=== PATIENT | female | born 1965 | race Caucasian/White ===

== ENCOUNTER 2019-12-14 08:42 | Outpatient (CLI) | payer OTHER, SELFPAY ==
[2019-12-14 09:13] LABS: Basophils Percent Auto 0.8 % (0.2-1.2); Eosinophils Absolute Auto 0.1 K/mm3 (0-0.3); Eosinophils Percent Auto 2.2 % (0-4.4); Hematocrit 40.7 % (37.0-47.0); Hemoglobin 13.9 g/dL (12.0-15.0); Immature Granulocyte Absolute 0.02 K/mm3 (0.00-0.031); Immature Granulocyte Percent A 0.4 % (0-0.5); Lymphocytes Absolute Auto 1.86 K/mm3 (0.9-3.2); Mean Corpuscular HGB Conc 34.2 g/dl (32-36); Mean Corpuscular Hemoglobin 30.5 pg (26-34); Mean Corpuscular Volume 89.3 fl (80-100); Mean Platelet Volume 10.4 fl (7.4-10.4); Monocytes Absolute Auto 0.4 K/mm3 (0.1-0.6); Monocytes Percent Auto 7.6 % (2.6-8.5); Neutrophils Absolute Auto 2.6 K/mm3 (1.3-6.7); Platelet Count Result 184 k/mm3 (150-375); Red Blood Count 4.56 M/mm3 (4.2-5.4); Red Cell Distribution Width 13.4 % (11.5-14.5)
[2019-12-14 09:17] LABS: Add Urine Microscopic? YES; Appearance Urine Clear (Clear); Bacteria Urine 4+ /hpf; Bilirubin Urine Negative (Negative); Blood Urine 1+ (Negative); Color Urine Yellow (Yellow); Glucose Urine UA 3+ mg/dL (Negative); Ketones Urine Negative (Negative); Leukocyte Esterase Ur 1+ LEU/UL (Negative); Mucus Urine Rare /lpf; Nitrate Urine Positive (Negative); Protein Urine Negative (Negative); Specific Grav Ur 1.018 (1.001-1.035); Squamous Epithelial Cell Urine Occasional /hpf (Few); Urobilinogen Urine Negative mg/dL (<2.0); WBC Urine 31-50 /hpf
[2019-12-14 09:30] LABS: Alanine Aminotransferase 32 U/L (4-35); Albumin Level 4.4 g/dL (3.5-5.1); Alkaline Phosphatase 106 U/L (38-126); Anion Gap 8 mmol/L (8-16); Aspartate Amino Transferase 33 U/L (14-36); Bilirubin,Total 1.3 mg/dL (0.2-1.3); Blood Urea Nitrogen 15 mg/dL (7-17); Carbon Dioxide 27 mmol/L (22-30); Chloride 99 mmol/L (98-107); Cholesterol 271 mg/dL (0-200); Estimated Glomerular Filt Rate > 60; Glucose 233 mg/dL (65-105); HDL Direct 33 mg/dL; Potassium 4.6 mmol/L (3.4-5.0); Sodium 134 mmol/L (137-145)
[2019-12-14 09:39] LABS: LDL Cholesterol Direct 114 mg/dL
[2019-12-14 09:46] LABS: Triglycerides 697 mg/dL (<150)
[2019-12-14 10:06] LABS: Creatinine Urine 104.6 mg/dL
[2019-12-14 10:09] LABS: Hemoglobin A1C 8.9 % (<5.7)
[2019-12-14 10:11] LABS: MALB Creatinine Ratio 29.2 mg/g (0-30); Microalbumin Urine Random 30.5 mg/L (0-16.7)
== END 2019-12-14 08:43 | disposition home or self-care (01) ==
LOC: ANHLAB 08:47
PROVIDERS: PCP Physician Assistant; Visit Provider Physician Assistant
DX: E11.65 Type 2 diabetes mellitus with hyperglycemia (principal); E78.2 Mixed hyperlipidemia; Z79.899 Other long term (current) drug therapy
CPT/HCPCS: 36415; 80048; 80061; 80076; 81001; 82043; 83036; 84439; 84443; 85025; 87086; 87088

== ENCOUNTER 2020-01-27 13:50 | Outpatient (CLI) | payer OTHER, SELFPAY ==
[2020-01-27 14:26] LABS: Add Urine Microscopic? YES; Appearance Urine Clear (Clear); Bacteria Urine Trace /hpf; Bilirubin Urine Negative (Negative); Blood Urine Negative (Negative); Color Urine Straw (Yellow); Glucose Urine UA 3+ mg/dL (Negative); Ketones Urine Negative (Negative); Leukocyte Esterase Ur Negative LEU/UL (NEGATIVE); Nitrate Urine Negative (Negative); Protein Urine Negative (Negative); RBC Urine 0-2 /hpf (0-2); Specific Grav Ur 1.023 (1.001-1.035); Squamous Epithelial Cell Urine Rare /hpf (Few); Urobilinogen Urine Negative mg/dL (<2.0)
== END 2020-01-27 13:51 | disposition home or self-care (01) ==
PROVIDERS: PCP Physician Assistant; Visit Provider Physician Assistant
DX: R39.9 Unspecified symptoms and signs involving the genitourinary system (principal)
CPT/HCPCS: 81001; 87086; 87088

== ENCOUNTER → 2020-03-09 14:58 | Outpatient (CLI) | payer OTHER, SELFPAY ==
--- NOTE | ~2020-03-09 | MM_ITS ---
EXAMINATION: MM screening sweta BI w viola HISTORY: Screening TECHNIQUE: Craniocaudal and mediolateral oblique 3-D tomosynthesis images were obtained and synthetic 2-D images were generated. CAD analysis was submitted and interpreted. COMPARISON: No prior mammogram is available for comparison at this institution. BREAST PARENCHYMAL COMPOSITION: There are scattered areas of fibroglandular density. FINDINGS: There is no evidence of suspicious mass, calcification, or architectural distortion to sugg est malignancy in either breast. There has been no suspicious interval change. IMPRESSION: 1. No mammographic evidence of malignancy. 2. Recommend routine screening mammography in one year. BI-RADS Category 1: Negative Reviewed, dictated and finalized at location A. [employer]
== END ==
PROVIDERS: PCP Physician Assistant; Visit Provider Physician Assistant
DX: Z12.31 Encounter for screening mammogram for malignant neoplasm of breast (principal)
CPT/HCPCS: 77063; 77067

== ENCOUNTER 2020-03-13 08:15 | Outpatient (CLI) | payer OTHER, SELFPAY ==
[2020-03-13 08:50] LABS: Alanine Aminotransferase 39 U/L (4-35); Albumin Level 4.3 g/dL (3.5-5.1); Alkaline Phosphatase 101 U/L (38-126); Anion Gap 9 mmol/L (8-16); Aspartate Amino Transferase 41 U/L (14-36); Bilirubin,Total 1.8 mg/dL (0.2-1.3); Blood Urea Nitrogen 13 mg/dL (7-17); Calcium 9.2 mg/dL (8.4-10.2); Carbon Dioxide 30 mmol/L (22-30); Chloride 97 mmol/L (98-107); Cholesterol 184 mg/dL (0-200); Estimated Glomerular Filt Rate > 60; Glucose 249 mg/dL (65-105); HDL Direct 29 mg/dL; Sodium 136 mmol/L (137-145); Triglycerides 347 mg/dL (<150)
[2020-03-13 08:51] LABS: Hemoglobin A1C 8.9 % (<5.7)
[2020-03-13 09:00] LABS: LDL Cholesterol Direct 107 mg/dL
[2020-03-13 09:34] LABS: Free T4 Free Thyroxine 1.14 ng/mL (0.78-2.19)
== END 2020-03-13 08:16 | disposition home or self-care (01) ==
PROVIDERS: PCP Physician Assistant; Visit Provider Physician Assistant
DX: E11.65 Type 2 diabetes mellitus with hyperglycemia (principal); E78.2 Mixed hyperlipidemia; E02 Subclinical iodine-deficiency hypothyroidism
CPT/HCPCS: 36415; 80048; 80061; 80076; 83036; 84439; 84443

== ENCOUNTER 2020-08-11 10:52 | Emergency (ER) | payer OTHER, SELFPAY ==
[2020-08-11] VITALS (8 sets, daily range): BP systolic 132–140; BP diastolic 68–89; PULSE 78–94; RESP 18; TEMP 37.1; O2SAT 90–100
--- NOTE | ~2020-08-11 | CT_ITS ---
EXAMINATION: CT abdomen pelvis w con DATE: 08/11/2020 13:10 INDICATION: Low abdominal pain. TECHNIQUE: Computed tomography (CT) of the abdomen and pelvis was performed with 100 mL Omnipaque 350 intravenous contrast. Automated exposure control and iterative reconstruction technique were employe d. The dose-length product was 1420.41 mGy-cm. COMPARISON: CT abdomen and pelvis 12/22/2017 FINDINGS: The visualized portions of the lung bases demonstrate minimal atelectasis. No pleural effus ion. The heart size is normal. No pericardial effusion. The liver, gallbladder, spleen, pancreas, adr enal glands, and left kidney are normal. There is cortical thinning in right kidney. There are no dil ated loops of bowel. The appendix is normal. There is punctate gas in the bladder lumen, likely from recent instrumentation. There are no pathologically enlarged lymph nodes. There is no free intraperit dennison fluid. There is moderate thoracic spondylosis and mild lumbar spondylosis. IMPRESSION: 1. No etiology for the patient's symptoms. Reviewed, dictated and finalized at location B.
[2020-08-11 11:32] LABS: Basophils Percent Auto 0.3 % (0.2-1.2); Eosinophils Absolute Auto 0.1 K/mm3 (0-0.3); Eosinophils Percent Auto 0.7 % (0-4.4); Hematocrit 39.9 % (37.0-47.0); Hemoglobin 13.5 g/dL (12.0-15.0); Immature Granulocyte Absolute 0.04 K/mm3 (0.00-0.031); Immature Granulocyte Percent A 0.4 % (0-0.5); Lymphocytes Absolute Auto 1.78 K/mm3 (0.9-3.2); Mean Corpuscular HGB Conc 33.8 g/dl (32-36); Mean Corpuscular Hemoglobin 30.5 pg (26-34); Mean Corpuscular Volume 90.3 fl (80-100); Mean Platelet Volume 10.2 fl (7.4-10.4); Monocytes Absolute Auto 0.6 K/mm3 (0.1-0.6); Monocytes Percent Auto 5.2 % (2.6-8.5); Neutrophils Absolute Auto 8.6 K/mm3 (1.3-6.7); Neutrophils Percent Auto 77.4 % (45.5-73.1); Platelet Count Result 189 k/mm3 (150-375); Red Blood Count 4.42 M/mm3 (4.2-5.4); White Blood Count 11.2 K/mm3 (4.5-10.0)
[2020-08-11 11:41] LABS: Alanine Aminotransferase 42 U/L (4-35); Albumin Level 4.4 g/dL (3.5-5.1); Alkaline Phosphatase 109 U/L (38-126); Anion Gap 7 mmol/L (8-16); Aspartate Amino Transferase 28 U/L (14-36); Bilirubin,Total 1.6 mg/dL (0.2-1.3); Blood Urea Nitrogen 12 mg/dL (7-17); Calcium 9.5 mg/dL (8.4-10.2); Carbon Dioxide 28 mmol/L (22-30); Chloride 100 mmol/L (98-107); Estimated Glomerular Filt Rate > 60; Glucose 265 mg/dL (65-105); Lipase 48 U/L (23-300); Potassium 4.5 mmol/L (3.4-5.0); Sodium 135 mmol/L (137-145)
[2020-08-11 12:36] LABS: Add Urine Microscopic? YES; Appearance Urine Clear (Clear); Bilirubin Urine Negative (Negative); Blood Urine Negative (Negative); Color Urine Yellow (Yellow); Glucose Urine UA 3+ mg/dL (Negative); Ketones Urine Negative (Negative); Leukocyte Esterase Ur Negative LEU/UL (Negative); Mucus Urine Rare /lpf; Nitrate Urine Negative (Negative); Protein Urine Negative (Negative); Specific Grav Ur 1.021 (1.001-1.035); Squamous Epithelial Cell Urine Rare /hpf (Few); Urobilinogen Urine Negative mg/dL (<2.0); WBC Urine 0-3 /hpf
--- NOTE | 2020-08-11 12:56 | ED.GENADULT ---
HPI - General Adult General Chief complaint: Abdominal Pain Stated complaint: abd pain Time Seen by Provider: 08/11/20 12:22 Source: patient History of Present Illness HPI narrative: Patient is a 55 y/o female complaining of abdominal pain since yesterday. She states that her pain is located mostly in lower abdomen. Pain is worse on the right side. She also has some pain in epigastric area. She rates her pain as 5/10. There is some pain radiation to back. She took some gas pill which did not help. She has no vomiting or diarrhea. Her last BM was this morning. Related Data Home Medications Medication Instructions Recorded Confirmed levothyroxine 88 mcg PO DAILY 08/11/20 08/11/20 omega-3 acid ethyl esters 1 g PO DAILY 08/11/20 semaglutide [Ozempic] 1 mg SUBCUT UD DOSE PK 08/11/20 Allergies Allergy/AdvReac Type Severity Reaction Status Date / Time tramadol Allergy Intermediate VIOLENT Verified 08/11/20 12:27 VOMITING codeine Allergy Unknown Abdominal Verified 08/11/20 12:27 discomfort hydrocodone AdvReac Intermediate NAUSEA Verified 08/11/20 12:27 Review of Systems Constitutional: Constitutional: Denies chills, Denies fever(s), Denies headache(s) and Denies weakness Eyes: Eyes: Denies blurry vision ENT: Denies headache(s) and Denies neck pain Cardiovascular: Cardiovascular: Denies chest pain and Denies dyspnea Respiratory: Respiratory: Denies cough and Denies dyspnea Gastrointestinal: Gastrointestinal: Reports abdominal pain, Denies diarrhea, Denies nausea and Denies vomiting Genitourinary: Genitourinary: Denies hematuria and Denies dysuria Musculoskeletal: Musculoskeletal: Denies back pain and Denies neck pain Neurologic: Denies headache(s) and Denies weakness [facility] Family History Family History Grandparent Diabetes mellitus Mother Family history of psoriasis Social History Social History Smoking status: Never smoker Alcohol intake: never Exam Const: General: no acute distress and well developed Orientation/consciousness: oriented to person, oriented to place, oriented to time and patient oriented x3 HENMT: Head: normocephalic Ears: external ears normal General nose exam: Normal external nose present Eyes: General: appearance normal, both eyes and all related structures Conjunctivae: conjunctivae normal Neck: Neck: normal visual inspection and full ROM Chest: Chest palpation & inspection: normal inspection of the chest and no tenderness Resp: Effort & Inspection: normal respiratory effort Auscultation: clear to auscultation bilaterally Cardio: Rate: regular rate Rhythm: regular rhythm GI: GI Palp: No abdominal tenderness and Yes Soft to palpation Skin: General skin exam: normal color and turgor normal Neuro: General: oriented to person, oriented to place, oriented to time and patient oriented x3 Cognition (Neuro): normal cognition Extrem: General: normal to inspection, full ROM and no pedal edema Psych: Appearance: grossly normal Mental Status: mental status grossly normal Affect: normal affect Course Vital Signs Vital signs: Vital Signs Temperature 37.1 C 08/11/20 12:10 Pulse Rate 94 08/11/20 12:10 Respiratory Rate 18 08/11/20 12:10 Blood Pressure 133/89 08/11/20 12:10 Pulse Oximetry 97 08/11/20 12:10 Temperature 37.1 C 08/11/20 12:10 Pulse Rate 94 08/11/20 12:10 Respiratory Rate 18 08/11/20 12:10 Blood Pressure 140/68 08/11/20 13:58 Pulse Oximetry 100 08/11/20 14:00 Medical Decision Making Vital Signs Vital Signs: Vital Signs Temperature 37.1 C 08/11/20 12:10 Pulse Rate 94 08/11/20 12:10 Respiratory Rate 18 08/11/20 12:10 Blood Pressure 133/89 08/11/20 12:10 Pulse Oximetry 97 08/11/20 12:10 Temperature 37.1 C 08/11/20 12:10 Pulse Rate 94 08/11/20 12:10 Respiratory Rate 18
[2020-08-11] MEDS: KETOROLAC 30 MG/ML VIAL (*BKC) IV PUSH (13:15)
[2020-08-11] MEDS: SODIUM CHLORIDE 0.9% IV 1,000 ML 999 ML IV CONT (13:15)
[2020-08-11] MEDS: DICYCLOMINE HCL INJ 20 MG/2 ML VIAL IM (14:10)
[2020-08-11] MEDS: BELLADONNA ALK/PHENOB ELIX 10 ML, MAG HYDROX/ALUMINUM HYD/SIMETH 30 ML, LIDOCAINE HCL 2... PO (14:10)
== END 2020-08-11 15:16 | disposition home or self-care (01) ==
PROVIDERS: Emergency Medicine; Emergency Provider Emergency Medicine; PCP Physician Assistant
DX: R10.84 Generalized abdominal pain (principal)
CPT/HCPCS: 36415; 74177; 80053; 81001; 81025; 83690; 85025; 96361; 96372; 96374; 99284; A9270; J0500; J1885; J7030; Q9967

== ENCOUNTER 2020-08-20 15:00 | Outpatient (CLI) | payer OTHER, SELFPAY ==
[2020-08-20 15:49] LABS: Anion Gap 9 mmol/L (8-16); Blood Urea Nitrogen 15 mg/dL (7-17); Calcium 9.7 mg/dL (8.4-10.2); Carbon Dioxide 30 mmol/L (22-30); Chloride 101 mmol/L (98-107); Cholesterol 189 mg/dL (0-200); Estimated Glomerular Filt Rate > 60; Glucose 188 mg/dL (65-105); HDL Direct 39 mg/dL; Sodium 140 mmol/L (137-145); Triglycerides 241 mg/dL (<150)
[2020-08-20 15:59] LABS: LDL Cholesterol Direct 114 mg/dL
[2020-08-20 16:01] LABS: Hemoglobin A1C 9.5 % (<5.7)
[2020-08-20 16:17] LABS: Free T4 Free Thyroxine 1.02 ng/mL (0.78-2.19)
== END 2020-08-20 15:01 | disposition home or self-care (01) ==
PROVIDERS: PCP Physician Assistant; Visit Provider Physician Assistant
DX: E11.65 Type 2 diabetes mellitus with hyperglycemia (principal); E03.9 Hypothyroidism, unspecified; E78.5 Hyperlipidemia, unspecified
CPT/HCPCS: 36415; 80048; 80061; 83036; 84439; 84443

== ENCOUNTER → 2020-08-20 16:07 | Outpatient (CLI) | payer OTHER, SELFPAY ==
--- NOTE | ~2020-08-20 | US_ITS ---
EXAMINATION: US pelvic complete w TV DATE: 08/20/2020 16:41 INDICATION: Pelvic pain TECHNIQUE: Multiple transabdominal and endovaginal sonographic images of the pelvis were obtained. COMPARISON: CT, 08/11/2020 FINDINGS: The uterus measures 8.3 x 3.2 x 4.2 cm. The endometrial complex measures 4 mm. The ovaries are not visualized however no adnexal abnormality is seen. There is no free fluid in the pelvis. IMPRESSION: 1. No sonographic correlate for the patient's symptoms. Reviewed, dictated and finalized at location A.
== END ==
PROVIDERS: PCP Physician Assistant; Visit Provider Physician Assistant
DX: R10.30 Lower abdominal pain, unspecified (principal)
CPT/HCPCS: 76830; 76856

== ENCOUNTER 2021-03-04 10:19 | Outpatient (CLI) | payer OTHER, SELFPAY ==
[2021-03-04 11:41] LABS: Iron 115 ug/dL (37-170)
[2021-03-04 11:44] LABS: Hemoglobin A1C 6.3 % (<5.7)
[2021-03-04 11:45] LABS: Alanine Aminotransferase 30 U/L (4-35); Albumin Level 4.4 g/dL (3.5-5.1); Alkaline Phosphatase 85 U/L (38-126); Anion Gap 8 mmol/L (8-16); Aspartate Amino Transferase 26 U/L (14-36); Bilirubin,Total 1.4 mg/dL (0.2-1.3); Blood Urea Nitrogen 18 mg/dL (7-17); Calcium 9.2 mg/dL (8.4-10.2); Carbon Dioxide 27 mmol/L (22-30); Chloride 99 mmol/L (98-107); Estimated Glomerular Filt Rate > 60; Glucose 94 mg/dL (65-110); Potassium 4.3 mmol/L (3.4-5.0); Sodium 134 mmol/L (137-145)
[2021-03-04 11:54] LABS: Percent Iron Saturation 40 % (20-50)
[2021-03-04 11:56] LABS: Creatinine Urine 95.9 mg/dL
[2021-03-04 12:00] LABS: MALB Creatinine Ratio 15.7 mg/g (0-30); Microalbumin Urine Random 15.1 mg/L (0-16.7)
[2021-03-04 12:06] LABS: Free T4 Free Thyroxine 1.35 ng/mL (0.78-2.19)
[2021-03-04 12:27] LABS: Cortisol Random 5.34 ug/dL
[2021-03-08 15:01] LABS: Testosterone Free 2.8 pg/mL (0.1-6.4); Testosterone Total 14 ng/dL (2-45)
[2021-03-09 13:38] LABS: DHEA-Sulfate 153 mcg/dL (8-188)
== END 2021-03-04 10:20 | disposition home or self-care (01) ==
PROVIDERS: PCP Physician Assistant; Visit Provider Internal Medicine Endocrinology, Diabetes & Metabolism
DX: E11.65 Type 2 diabetes mellitus with hyperglycemia (principal); E03.9 Hypothyroidism, unspecified; R63.5 Abnormal weight gain; L65.9 Nonscarring hair loss, unspecified
CPT/HCPCS: 36415; 80053; 82043; 82533; 82627; 82728; 83036; 83540; 83550; 84402; 84403; 84439; 84443

== ENCOUNTER 2021-03-05 07:47 | Outpatient (CLI) | payer OTHER, SELFPAY ==
[2021-03-05 09:07] LABS: Cortisol Random 0.84 ug/dL
== END 2021-03-05 07:48 | disposition home or self-care (01) ==
LOC: ANHLAB 07:52
PROVIDERS: PCP Physician Assistant; Visit Provider Internal Medicine Endocrinology, Diabetes & Metabolism
DX: R63.5 Abnormal weight gain (principal)
CPT/HCPCS: 36415; 82533

== ENCOUNTER 2022-05-19 09:11 | Outpatient (CLI) | payer OTHER, SELFPAY ==
[2022-05-19 10:21] LABS: Creatinine Urine 62.6 mg/dL
[2022-05-19 10:26] LABS: MALB Creatinine Ratio 34.2 mg/g (0-30); Microalbumin Urine Random 21.4 mg/L (0-16.7)
[2022-05-19 10:40] LABS: Hemoglobin A1C 7.8 % (<5.7)
[2022-05-19 18:55] LABS: Alanine Aminotransferase 36 U/L (6-35); Albumin Level 4.5 g/dL (3.5-5.1); Alkaline Phosphatase 106 U/L (38-126); Anion Gap 9 mmol/L (8-16); Aspartate Amino Transferase 31 U/L (14-36); Bilirubin,Total 1.5 mg/dL (0.2-1.3); Blood Urea Nitrogen 16 mg/dL (7-17); Carbon Dioxide 26 mmol/L (22-30); Chloride 102 mmol/L (98-107); Cholesterol 180 mg/dL (0-200); Estimated Glomerular Filt Rate > 60; Glucose 130 mg/dL (65-110); HDL Direct 35 mg/dL; Potassium 4.6 mmol/L (3.4-5.0); Sodium 137 mmol/L (137-145); Triglycerides 258 mg/dL (<150)
[2022-05-19 19:06] LABS: LDL Cholesterol Direct 92 mg/dL
[2022-05-19 20:01] LABS: Folic Acid 11.7 ng/mL (2.76->20)
== END 2022-05-19 09:12 | disposition home or self-care (01) ==
LOC: ANHLAB 09:14
PROVIDERS: PCP Physician Assistant; Visit Provider Internal Medicine Endocrinology, Diabetes & Metabolism
DX: E11.9 Type 2 diabetes mellitus without complications (principal); E78.5 Hyperlipidemia, unspecified; E03.9 Hypothyroidism, unspecified
CPT/HCPCS: 36415; 80053; 80061; 82043; 82607; 82746; 83036; 84443; 84481

== ENCOUNTER 2022-11-14 10:46 | Outpatient (CLI) | payer OTHER, SELFPAY ==
[2022-11-14 11:25] LABS: Alanine Aminotransferase 34 U/L (6-35); Albumin Level 4.3 g/dL (3.5-5.1); Alkaline Phosphatase 117 U/L (38-126); Anion Gap 6 mmol/L (8-16); Aspartate Amino Transferase 29 U/L (14-36); Bilirubin,Total 1.4 mg/dL (0.2-1.3); Blood Urea Nitrogen 21 mg/dL (7-17); Calcium 9.2 mg/dL (8.4-10.2); Carbon Dioxide 26 mmol/L (22-30); Chloride 99 mmol/L (98-107); Cholesterol 189 mg/dL (0-200); Estimated Glomerular Filt Rate > 60; Glucose 183 mg/dL (65-110); HDL Direct 38 mg/dL; Potassium 4.4 mmol/L (3.4-5.0); Sodium 131 mmol/L (137-145); Triglycerides 435 mg/dL (<150)
[2022-11-14 11:36] LABS: LDL Cholesterol Direct 94 mg/dL
[2022-11-14 11:47] LABS: Hemoglobin A1C 7.9 % (<5.7)
[2022-11-14 12:28] LABS: Free T4 Free Thyroxine 1.45 ng/mL (0.78-2.19)
[2022-11-14 12:36] LABS: MALB Creatinine Ratio 58.5 mg/g (0-30); Microalbumin Urine Random 53.8 mg/L (0-16.7)
[2022-11-18 06:08] LABS: Triiodothyronine T3 Free 2.7 pg/mL (2.3-4.2)
== END 2022-11-14 10:47 | disposition home or self-care (01) ==
LOC: ANHLAB 10:50
PROVIDERS: PCP Physician Assistant; Visit Provider Internal Medicine Endocrinology, Diabetes & Metabolism
DX: E11.65 Type 2 diabetes mellitus with hyperglycemia (principal); E03.9 Hypothyroidism, unspecified; E78.5 Hyperlipidemia, unspecified
CPT/HCPCS: 36415; 80053; 80061; 82043; 83036; 84439; 84443; 84481

== ENCOUNTER 2022-11-15 08:02 | Outpatient (CLI) | payer OTHER, SELFPAY ==
[2022-11-15 09:41] LABS: Cortisol Random 1.32 ug/dL
[2022-11-23 12:02] LABS: Dexamethasone 434 ng/dL
== END 2022-11-15 08:03 | disposition home or self-care (01) ==
LOC: ANHLAB 08:04
PROVIDERS: PCP Physician Assistant; Visit Provider Internal Medicine Endocrinology, Diabetes & Metabolism
DX: R63.5 Abnormal weight gain (principal)
CPT/HCPCS: 36415; 80299; 82533

== ENCOUNTER 2023-04-25 11:38 | Emergency (ER) | payer OTHER, SELFPAY ==
--- NOTE | 2023-04-25 11:44 | ED.URI ---
HPI - URI/Sore Throat General Chief Complaint: Upper Respiratory Infection Stated Complaint: COUGH/FEVER/SINUS PAIN Source: patient, RN notes reviewed and old records reviewed Mode of arrival: ambulatory Limitations: no limitations History of Present Illness HPI Narrative: 57-year-old female presents to [facility] with complaints productive cough, congestion this started March 25. Patient has been taking [id number] medications with no relief patient states the last few days started running fever. Patient states started taking amoxicillin fiive days ago,that she had from last year. Patient states got slight improvement but now symptoms are worsening again. MD elicited complaint: cough Onset (ago): week(s) (4) Related Data Home Medications Medication Instructions Recorded Confirmed atorvastatin 20 mg tablet 20 mg PO DAILY 04/25/23 04/25/23 cyanocobalamin (vitamin B-12) 1,000 mcg subcut WEEKLY 04/25/23 04/25/23 1,000 mcg/mL injection solution glimepiride 1 mg tablet 1 mg PO DAILY 04/25/23 04/25/23 levothyroxine 125 mcg tablet 125 mcg PO DAILY 04/25/23 04/25/23 (Unithroid) metformin 500 mg tablet,extended 500 mg PO DAILY 04/25/23 04/25/23 release 24 hr semaglutide 1 mg/dose (4 mg/3 mL) 1 mg subcut WEEKLY 04/25/23 04/25/23 subcutaneous pen injector (Ozempic) Allergies Allergy/AdvReac Type Severity Reaction Status Date / Time tramadol Allergy Intermediate VIOLENT Verified 10/05/21 10:22 VOMITING codeine Allergy Unknown Abdominal Verified 10/05/21 10:22 discomfort hydrocodone AdvReac Intermediate NAUSEA Verified 10/05/21 10:22 Review of Systems Constitutional: Constitutional: Reports no additional constitutional complaints, Denies body ache(s), Denies chills, Denies fatigue, Reports fever(s) and Denies headache(s) Eyes: Eyes: Reports no additional eye complaints and Denies blurry vision ENT: Reports system reviewed and no additional complaints, except as documented, Denies vertigo, Denies dizziness, Denies ear discharge, Denies otalgia, Denies facial pain, Denies headache(s), Reports nasal congestion, Reports nasal discharge, Reports post nasal drip, Denies sinus pain, Reports sinus pressure and Denies sore throat Cardiovascular: Cardiovascular: Reports no additional cardiovascular complaints, Denies chest pain, Denies chest pain at rest, Denies rapid heart rate and Denies dyspnea Respiratory: Respiratory: Reports no additional respiratory complaints, Reports chest congestion, Reports cough, Reports excessive phlegm production (thick green), Denies pain on inspiration, Denies pain with cough and Denies dyspnea Gastrointestinal: Gastrointestinal: Denies abdominal pain, Denies diarrhea, Denies nausea and Denies vomiting Integumentary/Breasts: Skin/Breast: Denies rash Neurologic: Reports system reviewed and no additional complaints, except as documented, Denies vertigo, Denies dizziness and Denies headache(s) Endocrine: Endocrine: Denies fatigue PMFSH Family History Family History Grandparent Diabetes mellitus Mother Family history of psoriasis Social History Social History Smoking status: Never smoker Alcohol intake: never Substance use: never Comments At the time of my signature, I reviewed and agree with the nursing past medical, surgical, social, and family history. There is no relevant family history pertinent to the patient complaint. Exam Const: General: cooperative, healthy appearing, no acute distress and well nourished Nutritional Appearance: well nourished Orientation/consciousness: patient oriented x3 Limitations: no limitations HENMT: Head: normal to inspection and normocephalic Ears: external ears normal, TM's normal bilaterally, mastoids normal and Abnormal EAC present Face/Nose/Sinus: normal facial exam Face and sinus: normal facial exam Mouth: Ye
[2023-04-25 11:48] VITALS: BP 164/106; PULSE 90; RESP 16; TEMP 36.3; O2SAT 97
== END 2023-04-25 12:10 | disposition home or self-care (01) ==
PROVIDERS: Emergency Provider Registered Nurse; PCP Physician Assistant
DX: J20.9 Acute bronchitis, unspecified (principal); E78.00 Pure hypercholesterolemia, unspecified; I10 Essential (primary) hypertension; E11.9 Type 2 diabetes mellitus without complications; Z86.16 Personal history of COVID-19
CPT/HCPCS: 99213; G0463

== ENCOUNTER 2023-07-10 10:20 | Outpatient (CLI) | payer OTHER, SELFPAY ==
[2023-07-10 12:51] LABS: Alanine Aminotransferase 46 U/L (6-35); Albumin Level 4.7 g/dL (3.5-5.1); Alkaline Phosphatase 110 U/L (38-126); Anion Gap 10 mmol/L (4-12); Aspartate Amino Transferase 52 U/L (14-36); Bilirubin,Total 1.4 mg/dL (0.2-1.3); Blood Urea Nitrogen 17 mg/dL (7-17); Calcium 10.1 mg/dL (8.4-10.2); Carbon Dioxide 21 mmol/L (22-30); Chloride 105 mmol/L (98-107); Cholesterol 275 mg/dL (0-200); Estimated Glomerular Filt Rate > 60; Glucose 129 mg/dL (65-110); HDL Direct 38 mg/dL; Potassium 4.4 mmol/L (3.4-5.0); Sodium 136 mmol/L (137-145); Triglycerides 364 mg/dL (<150)
[2023-07-10 13:01] LABS: LDL Cholesterol Direct 154 mg/dL; Transferrin 257 mg/dL (206-381)
[2023-07-10 13:05] LABS: Iron 117 ug/dL (37-170)
[2023-07-10 13:15] LABS: Percent Iron Saturation 38 % (20-50)
[2023-07-10 13:22] LABS: Creatinine Urine 85.3 mg/dL; Free T4 Free Thyroxine 1.34 ng/mL (0.78-2.19)
[2023-07-10 13:26] LABS: MALB Creatinine Ratio 125.1 mg/g (0-30); Microalbumin Urine Random 106.7 mg/L (0-16.7)
[2023-07-10 13:56] LABS: Folic Acid 13.3 ng/mL (2.76->20)
== END 2023-07-10 10:21 | disposition home or self-care (01) ==
LOC: ANHWCLAB 10:20
PROVIDERS: PCP Physician Assistant; Visit Provider Internal Medicine Endocrinology, Diabetes & Metabolism
DX: E78.5 Hyperlipidemia, unspecified (principal); E11.65 Type 2 diabetes mellitus with hyperglycemia
CPT/HCPCS: 36415; 80053; 80061; 82043; 82607; 82746; 83540; 83550; 84439; 84443; 84466

== ENCOUNTER 2023-08-16 14:33 | Outpatient (CLI) | payer OTHER, SELFPAY ==
--- NOTE | ~2023-08-16 | XR_ITS ---
EXAMINATION: XR_CERV2-3V_CR DATE: 08/16/2023 15:21 INDICATION: Neck pain. TECHNIQUE: 3 views of cervical spine were obtained. COMPARISON: None. FINDINGS: There is 7 degrees dextrocurvature of cervical spine and 5 degrees levocurvature of the cer vicothoracic spine. Vertebral body heights and intervertebral disc heights are normal. There is multi level mild facet joint osteoarthritis. No central canal stenosis or prevertebral soft tissue swelling . IMPRESSION: 1. Mild cervical facet joint osteoarthritis. Reviewed, dictated and finalized at location E.
--- NOTE | ~2023-08-16 | XR_ITS ---
EXAMINATION: XR foot LT min 3V DATE: 08/16/2023 15:21 INDICATION: Contusion of left foot. TECHNIQUE: 4 views of left foot were obtained. COMPARISON: None. FINDINGS: Bone alignment is normal. No fracture. There is mild osteoarthritis of first metatarsophala ngeal joint and some of the interphalangeal joints and midfoot joints. There are enthesophytes at the posterior and plantar aspects of calcaneal tuberosity. IMPRESSION: 1. Mild polyarticular osteoarthritis. Reviewed, dictated and finalized at location E.
--- NOTE | ~2023-08-16 | XR_ITS ---
EXAMINATION: XR lumbar spine 2-3V DATE: 08/16/2023 15:21 INDICATION: Low back pain. TECHNIQUE: 3 views of lumbar spine were obtained. COMPARISON: None. FINDINGS: There is 3 degrees dextrocurvature of lumbar spine. There is 5 mm anterolisthesis of L4 on L5. Vertebral body heights are normal. There is mildly decreased disc height at L3-L4, L4-L5, and L5- S1. There is multilevel severe facet joint osteoarthritis. IMPRESSION: 1. Mild lumbar spondylosis. Reviewed, dictated and finalized at location E. IMPRESSION: 1. Mild lumbar spondylosis.
--- NOTE | ~2023-08-16 | XR_ITS ---
EXAMINATION: XR thoracic spine 2V DATE: 08/16/2023 15:21 INDICATION: Thoracic back pain. TECHNIQUE: 3 views of thoracic spine were obtained. COMPARISON: None. FINDINGS: Bone alignment is normal. There is mild chronic anterior wedging of T12 vertebral body. The re is mildly decreased disc height at many levels. There is moderately decreased disc height at T6-T7 and T7-T8. There are endplate osteophytes at all levels. IMPRESSION: 1. Moderate thoracic spondylosis. Reviewed, dictated and finalized at location E.
== END 2023-08-16 14:34 | disposition home or self-care (01) ==
LOC: ANHIMG 14:35
PROVIDERS: PCP Physician Assistant; Visit Provider Physician Assistant
DX: M43.04 Spondylolysis, thoracic region (principal); M43.06 Spondylolysis, lumbar region; M47.892 Other spondylosis, cervical region; S90.32XA Contusion of left foot, initial encounter; M19.072 Primary osteoarthritis, left ankle and foot; X58.XXXA Exposure to other specified factors, initial encounter
CPT/HCPCS: 72040; 72070; 72100; 73630

== ENCOUNTER 2023-10-18 10:25 | Outpatient (CLI) | payer OTHER, SELFPAY ==
[2023-10-18 11:20] LABS: Anion Gap 12 mmol/L (4-12); Blood Urea Nitrogen 19 mg/dL (7-17); Calcium 9.2 mg/dL (8.4-10.2); Carbon Dioxide 26 mmol/L (22-30); Chloride 99 mmol/L (98-107); Cholesterol 190 mg/dL (0-200); Estimated Glomerular Filt Rate > 60; Glucose 127 mg/dL (65-110); HDL Direct 39 mg/dL; Potassium 4.7 mmol/L (3.4-5.0); Sodium 137 mmol/L (137-145); Triglycerides 321 mg/dL (<150)
[2023-10-18 11:31] LABS: LDL Cholesterol Direct 110 mg/dL
[2023-10-18 11:47] LABS: Creatinine Urine 109.1 mg/dL
[2023-10-18 11:51] LABS: MALB Creatinine Ratio 82.1 mg/g (0-30); Microalbumin Urine Random 89.6 mg/L (0-16.7)
== END 2023-10-18 10:26 | disposition home or self-care (01) ==
PROVIDERS: PCP Physician Assistant; Referring Provider Physician Assistant; Visit Provider Internal Medicine Endocrinology, Diabetes & Metabolism
DX: E78.5 Hyperlipidemia, unspecified (principal)
CPT/HCPCS: 36415; 80048; 80061; 82043

== ENCOUNTER 2024-03-04 10:34 | Outpatient (CLI) | payer OTHER, SELFPAY ==
--- NOTE | ~2024-03-04 | MR_ITS ---
MRI of the brain Clinical History: Speech disturbance Technique: Axial and sagittal T1-weighted images were acquired. These were followed by axial T2-weigh akhil, diffusion weighted, gradient, and FLAIR images. Following intravenous administration of 20 cc Mu ltiHance gadolinium, T1-weighted fat-sat imaging was performed in the axial and coronal planes. Findings: There is no acute infarct, intracranial hemorrhage or mass lesion. There are minimal foci o f hyperintense signal in the periventricular/subcortical white matter on FLAIR images. Ventricles and subarachnoid spaces are unremarkable. Orbits are unremarkable. Paranasal sinuses and m astoid air cells are clear. Major intracranial flow voids are intact. Sagittal midline structures are intact. No abnormal postcontrast enhancement identified. IMPRESSION: Minimal chronic microvascular ischemic change, otherwise unremarkable exam. Reviewed, dictated and finalized at location M. [employer] TRIAL EDUCATOR
== END 2024-03-04 10:35 | disposition home or self-care (01) ==
PROVIDERS: PCP Physician Assistant; Visit Provider Physician Assistant
DX: R47.9 Unspecified speech disturbances (principal)
CPT/HCPCS: 70553; A9577

== ENCOUNTER 2024-05-16 12:59 | Outpatient (CLI) | payer OTHER, SELFPAY ==
--- NOTE | ~2024-05-16 | XR_ITS ---
EXAMINATION: XR UGIAC wo kub DATE: 05/16/2024 13:47 INDICATION: Gastroesophageal reflux disease. TECHNIQUE: Thick barium contrast with gas effervescent crystals were administered orally. Fluoroscop ic images of the esophagus, stomach, and proximal duodenum were obtained in various projections. The reafter, overhead images of the abdomen were performed. 1.1 minutes of fluroscopy. DAP 30. FINDINGS: The esophagus is normal in caliber, without mucosal lesions or strictures. There is normal esophagea l peristalsis. There is a small hiatal hernia. No gastroesophageal reflux witnessed during the cours e of the study. The gastric folds are normal. The proximal duodenum is also normal in appearance. IMPRESSION: 1. Small hiatal hernia. Reviewed, dictated and finalized at location B. BUS DRIVER/GUIDE IMPRESSION: 1. Small hiatal hernia.
== END 2024-05-16 13:00 | disposition home or self-care (01) ==
PROVIDERS: PCP Physician Assistant; Visit Provider Physician Assistant
DX: K44.9 Diaphragmatic hernia without obstruction or gangrene (principal); K21.9 Gastro-esophageal reflux disease without esophagitis
CPT/HCPCS: 74246

== ENCOUNTER 2024-05-21 12:21 | Outpatient (CLI) | payer OTHER, SELFPAY ==
--- NOTE | ~2024-05-21 | CT_ITS ---
CT of the Abdomen and Pelvis: Indication: Abdominal pain Technique: 2.5 mm axial scans were obtained through the abdomen and pelvis following intravenous adm inistration of 100 cc of Omnipaque 350. Dose reduction technique was used on this scan by utilizing a utomated exposure control and iterative reconstruction technique. The dose-length product (DLP) was 1 459.68 mGy-cm. COMPARISON: 08/11/2020 Findings: Scans through the lung bases are unremarkable. The liver, spleen, pancreas, gallbladder, right adrenal gland, and kidneys are within normal limits. 1.3 cm left adrenal nodule is stable from prior exam. No evidence of aortic aneurysm. No lymphadenop athy. No bowel obstruction or bowel wall thickening. There is no evidence to suggest acute appendicitis. Images through the pelvis were performed. Urinary bladder unremarkable. No adnexal mass seen. No asci avila. Impression: No acute abnormality. Stable 1.3 cm renal nodule, most likely adenoma. Reviewed, dictated and finalized at location . R PAINT Impression: No acute abnormality. Stable 1.3 cm renal nodule, most likely adenoma.
--- NOTE | ~2024-05-21 | XR_ITS ---
EXAMINATION: XR chest 2V 05/21/2024 14:41 INDICATION: Cough PROCEDURE: 2 view chest COMPARISON: 08/31/2016 FINDINGS: The lungs are clear. The cardiomediastinal silhouette is within normal limits. There are no pleural effusions. There is no pneumothorax suspected. IMPRESSION: 1: NO ACUTE CARDIOPULMONARY DISEASE. Reviewed, dictated and finalized at location B. S BLOWING LATHE OPERATOR
--- OUTSIDE RECORDS SUMMARY | 2024-05-21 12:25 | XMS_ITS | Data Portability ---
Author Organization [facility] [employer], Main Office Address [address] [place] [address] Assessment No assessment recorded. Plan of Treatment Reminders Order Date Submit Date Provider Last Modified By Organization Details Last Modified Time Details Appointments None recorded. Lab cortisol, am, serum [address] (Lab), [address] [place] [address], [id number], 3 12:34:29 dexamethas one, serum [address] [place] [address] (Lab), [address] [place] [address], [id number], 3 12:34:29 lipid panel, serum [address] (Lab), [address] [place] [address], [address], 3 12:34:12 HbA1c (hemoglobi n A1c), blood [address] [place] [address] (Lab), [address] [place] [address], [address], 3 12:34:12 CMP, serum or plasma [address] (Lab), [address] [place] [address], [id number], 3 12:34:12 microalbum in/creatin ine, mass ratio, urine [address] (Lab), [address] [place] [address], [address], 3 12:34:12 TSH + free T4, serum [address] (Lab), [address] [place] [address], [address], 3 12:34:12 T3, free, serum or plasma [address] (Lab), [address] [place] [address], [address], 3 12:34:13 T3, free, serum or plasma [address] (Lab), [address] [place] [address], [address], 3 12:34:29 Referral endocrinol ogy referral 2022 023 Tahira Hdz MD, [address],, [address], [address], 3 11:09:55 Procedures None recorded. Surgeries None recorded. Imaging None recorded. Medication Orders cyanocobal wade (vit B-12) 1,000 mcg/mL injection solution 2022 023 [facility]/Pharmacy #[id number], [address] [place], [address], 3 13:25:57 atorvastat in 20 mg tablet 2022 023 [facility]/Pharmacy #[id number], [address] [place], [address], 3 10:58:12 Farxiga 10 mg tablet 2022 023 [id number] [address] [place], [address], 3 10:50:00 glimepirid e 1 mg tablet 2022 023 [id number] [address] [place], [address], 3 10:51:21 metformin ER 500 mg tablet,ext ended release 24 hr 2022 023 [id number] [address] [place], [address], 3 10:57:21 Ozempic 1 mg/dose (4 mg/3 mL) subcutaneo us pen injector 2022 023 [id number] [address] [place], [address], 3 10:57:20 Unithroid 125 mcg tablet 2022 023 [id number] [address] [place], [address], 3 16:20:45 dexamethas one 1 mg tablet 2022 023 [facility], [address] [place] [address], [id number], 3 12:34:26 metformin ER 500 mg tablet,ext ended release 24 hr 2022 023 [facility] [address], [id number], 3 12:36:35 Unithroid 125 mcg tablet 2022 023 [facility] [address], [id number], 3 12:34:27 Patient TargetsNo targets recorded. Patient InstructionsNo instructions recorded. Reason for Referral Endocrinology Referral for U ncontrolled type 2 diabetes mellitus Referring Physician: Reyna Faye, Endocrinology, Encounter Date: 11/24/2022 Results Created Date Observation Date Name Description Value Unit Range Abnormal Flag Note LastModifiedBy Organization Detail LastModifiedTime Result Notes None recorded. Problems Name Problem SNOMED Code Status Onset Date Resolution Date Notes Provider Name and Address Organization Details Recorded Time Lumbago with sciatica 815473741 Active 2021 Not Available [facility] 3 20:04:52 Muscle tension 443180880 Active 2021 Not Available [facility] 3 20:04:52 Mixed hyperlipidemi a 039605234 Active 2018 Not Available [facility] 3 20:04:52 Hypothyroidis m 45035529 Active 2022 Not Available [facility] 3 20:04:52 Acute urinary tract infection 055366571 Active 2021 Not Available [facility] 3 20:04:52 Diarrhea of presumed infectious origin 17176277 Active 2021 Not Available [facility] 3 20:04:53 Type 2 diabetes mellitus 00615030 Active 2017 Not Available [facility] 3 20:04:53 Uncontrolled type 2 diabetes mellitus 939214417 Active 2022 Not Available [facility] 3 20:04:53 Lower abdominal pain 82712250 Active 2020 Not Available [facility] 3 20:04:53 Congestion of nasal sinus 13254467 Active 2021 Not Available [facility] 3 20:04:53 Weight gain 3173969 Active 2022 Reyna Faye MD [address] [facility], [place] [address], [place], [address] , [facility] [place] [employer] [facility] 3 12:31:26 Dyslipidemia 053879595 Active 2022 Reyna Faye MD [address], [place], [address] , [employer] [facility] 3 12:33:42 Essential hypertension 49573888 Active 2022 Reyna Faye MD [address], [place], [address] , [employer] [facility] 3 14:16:29 Vitamin B12 deficiency (non anemic) 41579633 Active 2022 Reyna Faye MD [address], [place], [address] , [employer] [facility] 3 13:25:05 Problem Notes None recorded. Procedures Surgical History Date Name Laterality Status Provider Name and Address Organization Details Recorded Time 1 delivery completed Not Available [facility] 06/01/2022 20:03:14 9 delivery completed Not Available [facility] 06/01/2022 20:03:14 7 delivery completed Not Available [facility] 06/01/2022 20:03:14 6 delivery completed Not Available [facility] 06/01/2022 20:03:14 4 delivery completed Not Available [facility] 06/01/2022 20:03:14 Sinus Surgery completed Not Available [facility] 06/01/2022 20:03:14 Imaging Results None recorded. Procedure Notes None recorded. Medical Equipment None Reported. Allergies Allergen ID Allergen Name Allergen Category Reaction Reaction Severity Criticality Documentation Date Start Date Code Code System Note Provider Name and Address Organization Details Recorded Time 53687 morphine medicatio n vomiting Not available Not available 06/01/2022 7052 RxNorm Not Available [facility] 20:07:42 68523 codeine medicatio n nausea Not available Not available 06/01/2022 2670 RxNorm Not Available [facility] 20:07:42 Medications Name Sig Start Date Stop Date Status Note LastModified by Organization Details LastModified Time silver sulfadiaz ine 1 % topical cream APPLY A 1/16 INCH (1.5 MM) THICK LAYER TO LEFT THIGH WOUNDS BY TOPICALR OUTE 2 TIMES PER DAY 03/19 completed Not Available Not Available Not Available doxycycli ne hyclate 100 mg capsule active Not Available Not Available Not Available atorvasta tin 20 mg tablet TAKE 1 TABLET BY MOUTH EVERY DAY DIRECTED active Not Available Not Available No t Available lisinopri l 20 mg tablet Take 1 tablet every day by oral route in the morning for 90 days. active Not Available Not Available No t Available Medrol (Tony) 4 mg tablets in a dose pack take as directed 09/17 completed Not Available Not Available Not Available simvastat in 10 mg tablet Take 1 tablet every day by oral route. 12/15 completed Not Available Not Available Not Available metronida zole 500 mg tablet Take 1 tablet every 8 hours by oral route. active Not Available Not Available No t Available glimepiri de 1 mg tablet TAKE 2 TABLETS TWICE A DAY BY ORAL ROUTE DIRECTED FOR 90 DAYS 2022 active Not Available Not Available Not Avai lable levothyro xine 75 mcg tablet Take 1 tablet every day by oral route in the morning. 08/13 completed Not Available Not Available Not Available Aleve 220 mg tablet Take 2 tablets twice a day by oral route. 12/26 completed sometime qid for pain Not Available Not Available Not Available Unithroid 125 mcg tablet Take 1 tablet every day by oral route in the morning for 90 days. 2022 active Not Available Not Available Not Avai lable levothyro xine 100 mcg tablet Take 1 tablet every day by oral route as directed for 90 days. 11/24 completed Not Available Not Available Not Available Levoxyl 25 mcg tablet TAKE 1 TABLET BY MOUTH DAILY FOR 90 DAYS active Not Available Not Available No t Available levothyro xine 88 mcg tablet Take 1 tablet every day by oral route. 03/19 completed Not Available Not Available Not Available amoxicill in 875 mg tablet Take 1 tablet every 12 hours by oral route. 04/07 completed Not Available Not Available Not Available methocarb lady 750 mg tablet Take 1 tablet 3 times a day by oral route. active Not Available Not Available No t Available dexametha sone 1 mg tablet take dexa tablet at 10 pm night before 8 am cortisol 2022 active Not Available Not Available Not Avai lable erythromy maria teresa 5 mg/gram (0.5 %) eye ointment 07/01 completed Not Available Not Available Not Available cyanocoba chandler (vit B-12) 1,000 mcg/mL injection solution INJECT 1 ML EVERY WEEK BY SUBCUTAN EOUS ROUTE IN THE MORNING FOR 90 DAYS. active Not Available Not Available No t Available Cipro 500 mg tablet Take 1 tablet every 12 hours by oral route. 04/07 completed Not Available Not Available Not Available ibuprofen 200 mg tablet Take 4 tablets as needed by oral route. 12/26 completed for tooth pain Not Available Not Available Not Available diclofena c sodium 75 mg tablet,de layed release Take 1 tablet twice a day by oral route with meals. 08/13 completed Not Available Not Available Not Available levofloxa maria teresa 500 mg tablet Take 1 tablet every 24 hours by oral route. active Not Available Not Available No t Available albuterol sulfate HFA 90 mcg/actua tion aerosol inhaler Inhale 2 puffs every 4-6 hours by inhalati on route as needed for 90 days. active Not Available Not Available No t Available metformin ER 500 mg tablet,ex tended release 24 hr Take 1 tablet every day by oral route at dinner for 90 days. 2022 active Not Available Not Available Not Avai lable doxycycli ne hyclate 100 mg tablet Take 1 tablet twice a day by oral route with meals. active Not Available Not Available No t Available amoxicill in 875 mg-potass ium clavulana te 125 mg tablet Take 1 tablet every 12 hours by oral route with meals. 09/16 completed Not Available Not Available Not Available cyclobenz aprine 5 mg tablet TAKE ONE TABLET BY MOUTH THREE TIMES A DAY NEEDED active Not Available Not Available No t Available nitrofura ntoin monohydra te/macroc rystals 100 mg capsule Take 1 capsule every 12 hours by oral route. 09/28 completed Not Available Not Available Not Available omega-3 acid ethyl esters 1 gram capsule Take 2 capsules twice a day by oral route. 03/19 completed Not Available Not Available Not Available vitamin B complex one daily 2017 active Not Available Not Available Not Avai lable multivita min one daily 2017 active Not Available Not Available Not Avai lable BD Insulin Syringe Ultra-Fin e 1 mL 31 gauge x 5/16 INJECT B12 ONCE WEEKLY X 90 DAYS active Not Available Not Available No t Available Farxiga 10 mg tablet Take 1 tablet every day by oral route as directed for 90 days. 2022 active Not Available Not Available Not Avai lable Ozempic 1 mg/dose (2 mg/1.5 mL) subcutane ous pen injector INJECT 1MG SUBCUTAN EOUSLY EVERY WEEK DIRECTED 03/19 completed Not Available Not Available Not Available Ozempic 0.25 mg or 0.5 mg (2 mg/1.5 mL) subcutane ous pen injector INJECT 0.5 MG SUBCUTAN EOUSLY EVERY WEEK DIRECTED 12/15 completed Not Available Not Available Not Available FreeStyle Jose 14 Day Ravia active Not Available Not Available Not Available FreeStyle Jose 2 Sensor kit CHANGE EVERY 14 DAYS active Not Available Not Available No t Available Ozempic 1 mg/dose (4 mg/3 mL) subcutane ous pen injector INJECT 1MG SUBCUTAN EOUSLY WEEKLY active Not Available Not Available No t Available Ozempic 0.25 mg or 0.5 mg (2 mg/3 mL) subcutane ous pen injector Inject 0.5 mg every week by subcutan eous route at dinner for 90 days. 11/24 completed Not Available Not Available Not Available Vitals Date Recorded Body mass index (BMI) Body mass index (BMI) Body height Body height Oxygen saturation Oxygen saturation in Arterial blood by Pulse oximetry Oxygen saturation Oxygen saturation in Arterial blood by Pulse oximetry Heart rate Heart rate Respiratory rate Body temperature Body temperature Body weight Body weight Systolic blood pressure Diastolic blood pressure Systolic blood pressure Diastolic blood pressure Provider Name and Address Organization Details Last Updated DateTime 3 48.4 kg/m2 47.9 kg/m2 162.56 cm 162.56 cm 96 % 96 % 97 % 97 % 103 /min 100 /min 18 /min 98.9 [degF] 98.7 [degF] 529971. 05 g 617517. 27 g 120 mm[Hg] 88 mm[Hg] 120 mm[Hg] 68 mm[Hg] Not Available [employer] 3 20:03:22 Date Recorded Body height Body mass index (BMI) Body weight Heart rate Body temperature Systolic blood pressure Diastolic blood pressure Provider Name and Address Organization Details Last Updated DateTime 3 162.56 cm 50.1 kg/m2 550523. 97 g 79 /min 97.7 [degF] 190 mm[Hg] 88 mm[Hg] Alisha WunCHILO [place] [employer] [facility] [employer] [facility] 3 12:14:24 Date Recorded Body height Body mass index (BMI) Body weight Body temperature Heart rate Systolic blood pressure Diastolic blood pressure Provider Name and Address Organization Details Last Updated DateTime 3 162.56 cm 51 kg/m2 321803. 93 g 98 [degF] 89 /min 132 mm[Hg] 76 mm[Hg] Jaci Genao CMA [employer] [facility] [employer] [facility] 3 10:36:57 Social History Question Answer Notes LastModified by Hycreteat ion Details LastModified Time Tobacco Smoking Status Never Smoker Not Available [facility] 06/01/2022 20:03:01 What Is Your Level Of Alcohol Consumption? None [id number] Information not available 06/01/2022 What Is Your Level Of Caffeine Consumption? Occasional [id number] Information not available 06/01/2022 How Much Tobacco Do You Chew? None [id number] Information not available 06/01/2022 In The 14 Days Before Symptom Onset, Have You Had Close Contact With A Laboratory-confir med COVID-19 While That Case Was Ill? No [id number] Information not available 06/01/2022 In The 14 Days Before Symptom Onset, Have You Had Close Contact With A Person Who Is Under Investigation For COVID-19 While That Person Was Ill? No [id number] Information not available 06/01/2022 What Type Of Diet Are You Following? REGULAR [id number] Information not available 06/01/2022 Which Illicit Or Recreational Drugs Have You Used? None [id number] Information not available 06/01/2022 Do You Or Have You Ever Used E-cigarettes Or Vape? Never Used Electronic Cigarettes [id number] Information not available 06/01/2022 Do You Or Have You Ever Used Smokeless Tobacco? Never Used Smokeless Tobacco [id number] Information not available 06/01/2022 How Much Tobacco Do You Smoke? No [id number] Information not available 06/01/2022 Sex: Unknown Functional Status Question Answer Note LastModified by Organizat ion Details LastModified Time What is your exercise level? Occasional [id number] Information not available 06/01/2022 Mental Status None recorded. Family History Relationship Description Onset Age of this Age Resolved Age Notes LastModified by Organization Details LastModified Time Maternal Aunt Diabetes mellitus [id number] Not available 06/01/2022 20:03:15 Maternal Grandmother Prediabetes [id number] Not available 06/01/2022 20:03:15 Medical History Condition Response HIGH CHOLESTEROL / HYPERLIPIDEMIA Y HYPOTHYROIDISM Y OBESITY Y DIABETES, TYPE Y ASTHMA Y KIDNEY DISEASE Gynecological History Statement/Question Response Abnormal Pap N Sexually Active? Y Obstetrics History GPAL:G 6 P 0 0 0 5 Type Value Living 5 Total 6 Past Encounters Encounter ID Performer Location Encounter Start Date Encounter Closed Date Diagnosis/Indication Diagnosis SNOMED-CT Code Diagnosis ICD10 Code Diagnosis Note [id number] [facility] [address] [place] [address] 08/13/2020 00:00:00 08/13/2020 18:26:35 [id number] [facility] [address] [place] [address] 09/16/2020 00:00:00 09/30/2020 17:25:08 [id number] [facility] [place] [address] [place] [address] 10/01/2020 00:00:00 10/17/2020 21:03:02 [id number] [facility] [place] [address] [place] [address] 10/09/2020 00:00:00 10/09/2020 14:05:57 [id number] [facility] [place] [address] [place] [address] 09/06/2021 00:00:00 09/30/2021 20:04:31 [id number] [facility] [place] [address] [place] [address] 03/19/2021 00:00:00 03/19/2021 12:16:35 [id number] Reyna Faye MD [facility] [place] [address] [place] [address] 07/01/2022 12:03:13 07/01/2022 13:44:17 Uncontrolled type 2 diabetes mellitus 274636599 E11.65 a1c 7.8%- restart metformin. Will uptitrate ozempic to 2 mg once weekly- sample provided and continue farxiga 10 mg daily. Discussed carb counting and how to read food labels. Recommende d patient to utilize the diabetesfo [employer] from the ADA website to help with food preparatio n as this presents ideal carb content per meal so this will make carb counting much easier for patient. Recommende d she incorporat e natural insulin match up worker s such as pears, apples, cinnamon, charla and sweet potatoes to help mobilize her endogenous insulin. Recommende d up to 150 minutes of moderate level activity/e xercise weekly. Hypothyroidism 01950622 E03.9 WIll uptitrate and transition to unithroid 125 mcg daily. She was reminded to take her unithroid on empty stomach with glass of water and wait one hour to eat or have her coffee in morning and up to 4 hours if ever taking any heartburn or reflux medication s to help optimize absorption . Discussed paleo like diet with restrictio n of GMOs to help with energy and to optimize absorption of vitamins and minerals and reduce inflammati on. Weight gain 8684353 R63. 5 Will send for low dose dexa suppressio n testing to screen for hypercorti solic state. Dyslipidemia 294284876 E 78.5 Continue statin therapy. Spent up to 28 minutes preparing to see the patient (eg, review of tests), obtaining and/or reviewing separately obtained history, performing a medically appropriat e examinatio n and evaluation , counseling and educating the patient, ordering medication s, tests, along with documentin g clinical informatio n in the electronic health record, independen tly interpreti ng results and communicat ing results to the patient. RTC in 3-4 months. Patient was provided a handwritte n lab order which contains our fax number. If she chooses to go outside of the [facility] system to obtain labwork she was advised to provide our fax number and my informatio n to the lab she will be obtaining labwork from in order to have her labs properly forwarded over for me to review so there is no loss of follow up due to use of outside network. She was also advised to contact our clinic informing us that she has completed her labwork so we are aware we will need to reach out to the appropriat e laboratory to request her results be forwarded to us so I might have the ability to review and make further medical decision making in her case. She voiced understand ing. [id number] Reyna Faye MD [facility] [place] [address] [place] [address] 11/24/2022 10:27:01 11/24/2022 11:09:54 Uncontrolled type 2 diabetes mellitus 931395632 E11.65 Continue on current regimen- farxiga 10 mg daily, metformin for insulin sensitizat ion, glimepirid e scale along with ozempic 1 mg once weekly. Discussed carb counting and how to read food labels. Recommende d patient to utilize the diabetesfo [employer] from the ADA website to help with food preparatio n as this presents ideal carb content per meal so this will make carb counting much easier for patient. Recommende d she incorporat e natural insulin match up worker s such as pears, apples, cinnamon, charla and sweet potatoes to help mobilize her endogenous insulin. Recommende d up to 150 minutes of moderate level activity/e xercise weekly. Hypothyroidism 50991598 E03.9 Continue on unithroid 125 mcg daily. She was reminded to take her unithroid on empty stomach with glass of water and wait one hour to eat or have her coffee in morning and up to 4 hours if ever taking any heartburn or reflux medication s to help optimize absorption . Discussed paleo like diet with restrictio n of GMOs to help with energy and to optimize absorption of vitamins and minerals and reduce inflammati on. Dyslipidemia 254923432 E 78.5 Continue statin therapy. Vitamin B1 2 deficiency (non anemic) 68465890 E53.8 Trial on B12 injections as she does have fatigue- she is on metformin which can reduce absorption of B12. She is familiar with self injections and able to provide subcutaneo usly. Spent up to 25 minutes preparing to see the patient (eg, review of tests), obtaining and/or reviewing separately obtained history, performing a medically appropriat e examinatio n and evaluation , counseling and educating the patient, ordering medication s, tests, along with documentin g clinical informatio n in the electronic health record, independen tly interpreti ng results and communicat ing results to the patient. Patient can be followed by PCP - she/he is aware of my resignatio n and last day of January 13. If needed his/her PCP can refer patient to another endocrinol ogist in the area. All questions /concerns answered and refills necessary at visit today. Health Concerns Section Related Observation LastModified by Organization Detai ls LastModified Time None Recorded Concern Status LastModified by Organization Details LastModified Time None Recorded Advance Directives Directive None Recorded Payers Encounter Date Sequence Insurance Name Policy Number Policy Grimaldo Covered Member ID Grimaldo Member ID Guarantor Name 07/01/2022 1 [employer] [id number] Elia Bain [id number] Treva Bain 11/24/2022 1 [employer] [id number] Elia Bain [id number] Treva Bain Notes Date Note Type Note Provider Name and Address Organization Details Recorded Time 09/06/2021 text/html Back Pain - GeneralReported bypatient.Location:pa in free;pain radiating to the bilateral buttock(s);pain radiating to the bilateral leg(s);pain radiating to back of bilateral leg(s);pain radiating to back of bilateral thigh(s);pain radiating to the bilateral foot Quality:burning;throb frank Severity:feeling the same Duration:constant Timing:sudden Context:used medications for back pain Alleviating Factors:prescribed medication(s) Aggravating Factors:activity Associated Symptoms:no fever; no weak limbs; no tingling; no numbness of the legs/feet; no incontinence; no shortness of breathSinusitis/Aller gyReported bypatient.Quality:no hoarseness; no throbbing; minimal discomfort; improving;congested;w atering Severity:no pain; does not limit daily activities; no frequent breathing through the mouth; no nosebleeds (epistaxis); no snoring Duration:long standing Onset/Timing:recurrin g Context:no recent upper respiratory infection; no recent sick contacts; not worse with seasonal allergen exposure; not worse around animals; not worse around pollen; not worse around dust; not worse around molds; not worse with environmental exposure; not worse when mowing grass; not worse with certain foods; not worse with odors Alleviating factors:nothing gives relief;no relief with antihistamines Aggravating factors:not worse with change in medication; not worse during an upper respiratory infection (a cold); not worse when allergies are active Associated Symptoms:no fever; no weight loss; no hemoptysis; no hematemesis; no difficulty breathing; no feeling of strangulation; no nausea or vomiting; no thick phlegm in throat; no decreased sense of smell; no nasal passage blockage; no ear fullness; no skin itching; no dental pain; no muscle aches;nasal discharge from both nostrils;cough;headac he forehead;facial pain bilaterally;sinus pain nasal;sore throat;constantly clearing the throat;nasal itching;eye itching;pain behind the eyes both Risk Factors:no current smoking or tobacco use; no history of smoking; no increased stress; no family history of allergies; no history of nasal trauma; no allergy to aspirin; no history of nasal polyps; no history of asthma; no chemotherapy; no DM; no HIV; no immunodeficiency Not Available [facility] [employer] [facility] 09/30/2021 20:04:31 07/01/2022 text/html 57 yo female com es in for follow up in management of uncontrolled type 2 DM (A1C of 7.8%), dyslipidemia and hypothyroidism. last seen in Mar 2021 at that time we had patient continue on ozempic 1 mg once weekly, farxiga 10 mg daily along with metformin Er 500 mg once daily. we continued LT4 100 mcg daily and added atorvastatin 20 mg daily for dyslipidemia. She has not been on metformin for a few months. She has noticed increased belly.She is struggling with more constipation She is off soda and trying to drink more water to regulate her stools. Her sugars are overall regulated running under 150 mg/dL. Her blood pressure usually runs 126-140 mmHg/80-90mmHg. labs from 05/19/22:TSH of 1.480 uIU/mlmicroalbumin 34.2 ug/mgglucose 130 mg/dLB12 321 pg/mlLFT normalCr atjealo2r 7.8%180/258/35/92 Complications:No CAD or strokelast eye exam: has small areas of retinopathylast foot exam: no neuropathy , no sores, ulcers or amputations. Reyna Faye MD [address] [facility] [address], [place], [address], [employer] 07/01/2022 13:48:01 11/24/2022 text/html 57 yo female com es in for follow up in management of uncontrolled type 2 DM (A1C of 7.9%), mixed dyslipidemia. last seen in June when she re-established care we had patient restart metformin and we had her uptitrate ozempic to 2 mg once weekly. She is also taking farxiga 10 mg daily and glimepiride scale. We continued unithroid 125 mcg daily.She didn't get her thyroid medication until 6 weeks ago and just started- feeling better and more energetic. She has gained 5 pounds since her last visit. She does have fatigue that is more for her. Her sugars are improved now-under 180 mg/dL consistently - no hypoglycemia and average of 150 mg /dL or less. we sent for DST.cortisol was 1.32 ug/dL so within normal range labs from 11/23:TSH of 0.890 uIU/mlFT4 of 1.45 ng/dLFT3 of 2.7 pg/mlA1C of 7.9%glucose 183 mg/dlmicroalbumin 58.5 ug/mgLFT normalCr ohewcb439/435/38/94 Reyna Faye MD [address] [facility], [place], [address], [employer] 11/24/2022 13:27:55 OBGyn Episode No OBEpisode recorded.
--- OUTSIDE RECORDS SUMMARY | 2024-05-21 12:25 | XMS_ITS | Data Portability ---
Author Organization [facility] Address [address] [place] [address] Care Team Providers Care Tile Presser Name Role Phone TIM MARTIN Primary Care Provider Unavailab le Assessment No assessment recorded. Plan of Treatment Reminders Order Date Submit Date Provider Last Modified By Organization Details Last Modified Time Details Appointments ANY 15 2024 08:00A M AGNES Baker Not available Not available Not available Lab None recorded. Referral None recorded. Procedures None recorded. Surgeries None recorded. Imaging MAMMO, screening , digital, bilateral 2023 024 [facility], [address] [address], [place], [address], 04/16/2024 12:35:14 MRI, brain, w/wo contrast 2023 024 [facility] (Imaging), [facility] [address], [address], 03/04/2024 15:12:57 XR, cervical spine, 2 or 3 view 2023 024 [facility] (Imaging), [address], [address], 08/22/2023 11:34:19 XR, thoracic spine 2023 024 [facility] (Imaging), [facility] [address], [address], 08/17/2023 17:25:33 XR, lumbosacr al spine, 2 or 3 view 2023 024 [facility] (Imaging), [address] [place] [address], [address], 08/17/2023 17:51:12 XR, foot, 3 or more view 2023 024 [facility] (Imaging), [address] [place] [address], [address], 08/17/2023 17:50:44 Medication Orders cefdinir [address] capsule [address] [facility]/Pharmacy #[id number], [address] [place], [address], 05/14/2024 12:35:46 cyclobenz aprine 10 mg tablet 2023 024 [email or web address]armacy #[id number], [address] [place], [address], 05/14/2024 12:29:00 Patient TargetsNo targets recorded. Patient Instructions Encounter Date Encounter Id Patient Instructions Last Modified By Organization Details Last Modified Time 02/20/2024 [id number] A healthy lifestyle: care instructions [email or web address] Not available 02/20/2024 09:43:11 Reason for Referral None Reported. Results Created Date Observation Date Name Description Value Unit Range Abnormal Flag Note LastModifiedBy Organization Detail LastModifiedTime 08/17/1908/16/2023 XR, thora cic spine No observ ation record ed. [address], [address], 08/23/2023 13:13:41 08/17/19 24 08/16/2023 XR, lumbo sacra l spine , 2 or 3 view No observ ation record ed. [address], [address], 08/23/2023 13:13:41 08/17/19 24 08/16/2023 XR, foot, 3 or more view No observ ation record ed. [facility] [address], [place], [address], 08/22/2023 11:34:03 03/04/20 24 03/04/2024 MRI, brain , w/wo contr ast No observ ation record ed. [facility] [address], [place], [address], 03/05/2024 10:53:02 04/01/20 24 03/09/2020 MAMMO , scree serg, digit al, bilat eral No observ ation record ed. BAR[facility] Not Available 2023 14:15:43 05/16/19 25 05/16/2024 RF, upper gastr ointe paul l tract , w/ contr ast PO No observ ation record ed. [facility] [address], [place], [address], 05/20/2024 17:11:05 Result Notes None recorded. Problems Name Problem SNOMED Code Status Onset Date Resolution Date Notes Provider Name and Address Organization Details Recorded Time Uncontrolled type 2 diabetes mellitus 371532892 Active 2023 AGNES Baker Attn: Alon cordero,[address] [place], [address], [facility] 4 15:34:19 Hypothyroidism 04936915 Active 2023 AGNES Baker Attn: Alon cordero,[address] [facility], [place], [address], [facility] 4 15:34:20 Long-term drug therapy Active 2023 AGNES Baker Attn: Alon cordero,[address] [facility], [place], [address], [facility] 4 15:34:25 Neck pain 62341211 Active 2023 AGNES Baker Attn: Alon cordero,[address] [facility], [place], [address], [place] [facility] 4 15:34:52 Thoracic back pain 774429073 Active 2023 AGNES Baker Attn: Alon cordero,[address] [facility], [place], [address], [place] [facility] 4 15:34:53 Low back pain 013744759 Active 2023 AGNES Baker Attn: Alon cordero,[address] [facility], [place], [address], [place] [facility] 4 15:34:54 Body mass index 40+ - severely obese 972605998 Active 2023 Shakeel Davey MA null, [place] [facility] 4 09:25:01 Obesity 149698077 Active 2023 AGNES Baker Attn: Alon cordero,[address] [facility], [place], [address], [place] [facility] 4 09:33:43 Microalbuminur ic diabetic nephropathy 055364839 Active 2023 AGNES Baker Attn: Alon cordero,[address] [facility], [place], [address], [place] [facility] 4 09:37:02 Mixed hyperlipidemia 291247941 Active 2023 AGNES Baker Attn: Alon cordero,[address] [facility], [place], [address], [place] [facility] 4 09:37:03 Morbid obesity 193563606 Active 2024 AGNES Baker Attn: Alon cordero,[address] [facility], [place], [address], [place] [facility] 5 12:45:08 Problem Notes None recorded. Procedures Surgical History None recorded. Imaging Results Imaging Date Name Status LastModified by Organization Details LastModified Time 08/16/2023 XR, thoracic spine completed [address], [place], [address], 08/23/2023 13:13:41 08/16/2023 XR, lumbosacral spine, 2 or 3 view completed [address], [place], [address], 08/23/2023 13:13:41 08/16/2023 XR, foot, 3 or more view completed [address], [place], [address], 08/22/2023 11:34:03 03/04/2024 MRI, brain, w/wo contrast completed [facility] [address], [place], [address], 03/05/2024 10:53:02 03/09/2020 MAMMO, screening, digital, bilateral completed [facility] Information not available 04/01/2024 14:15:43 05/16/2024 RF, upper gastrointestinal tract, w/ contrast PO completed [facility] [address], [place], [address], 05/20/2024 17:11:05 Procedure Notes None recorded. Medical Equipment None Reported. Allergies Allergen ID Allergen Name Allergen Category Reaction Reaction Severity Criticality Documentation Date Start Date Code Code System Note Provider Name and Address Organization Details Recorded Time 745484 codeine medicatio n nausea Not available Not available 08/16/2023 2670 RxNorm Not Available Not Available Not Available 484726 morphine medicatio n headache Not available Not available 08/16/2023 7052 RxNorm Not Available Not Available Not Available Medications Name Sig Start Date Stop Date Status Note LastModified by Organization Details LastModified Time cyclobenz aprine 10 mg tablet Take 1 tablet every day by oral route for 20 days. active as needed Not Available Not Available Not Available atorvasta tin 20 mg tablet Take 1 tablet every day by oral route for 90 days. 02/19 completed Not Available Not Available Not Available azithromy maria teresa 250 mg tablet TAKE 2 TABLETS (500 MG) BY ORAL ROUTE ONCE DAILY FOR 1 DAY THEN 1 TABLET (250 MG) BY ORAL ROUTE ONCE DAILY FOR 4 DAYS 2024 active Not Available Not Available Not Avai lable Synthroid 125 mcg tablet Take 1 tablet every day by oral route. active Not Available Not Available No t Available glimepiri de 1 mg tablet Take 1 tablet every day by oral route for 90 days. 05/14 completed pt hasn't been taking this due to sugars levels Not Available Not Available Not Available cyanocoba chandler (vit B-12) 1,000 mcg/mL injection solution INJECT 1 ML EVERY WEEK BY SUBCUTAN EOUS ROUTE IN THE MORNING FOR 90 DAYS. active Not Available Not Available No t Available cephalexi n 500 mg tablet TAKE 1 TABLET BY MOUTH THREE TIMES A DAY 02/19 completed Not Available Not Available Not Available cefdinir 300 mg capsule 05/14 completed Not Available Not Available Not Available metformin ER 500 mg tablet,ex tended release 24 hr 500 MG ORALLY DAILY active Not Available Not Available No t Available rosuvasta tin 40 mg tablet Take 1 tablet every day by oral route for 90 days. active Not Available Not Available No t Available omeprazol e active otc Not Available Not Available Not Available BD Insulin Syringe Ultra-Fin e 1 mL 31 gauge x 5/16 INJECT B12 ONCE WEEKLY X 90 DAYS active Not Available Not Available No t Available Farxiga 10 mg tablet Take 1 tablet every day by oral route for 90 days. active Not Available Not Available No t Available Ozempic 1 mg/dose (4 mg/3 mL) subcutane ous pen injector INJECT 1 MG SUBCUTAN EOUSLY ONCE WEEKLY 02/19 completed Not Available Not Available Not Available Ozempic 2 mg/dose (8 mg/3 mL) subcutane ous pen injector 2 MG (0.75 ML) SUBCUTAN EOUSLY WEEKLY 05/14 completed pt has taken herself off this med Not Available Not Available Not Available Dexcom G7 Sensor device USE DIRECTED active Not Available Not Available No t Available Vitals Date Recorded Respiratory rate Body weight Body mass index (BMI) Body height Oxygen saturation Oxygen saturation in Arterial blood by Pulse oximetry Heart rate Systolic blood pressure Diastolic blood pressure Provider Name and Address Organization Details Last Updated DateTime 4 20 /min 449118. 23 g 58.7 kg/m2 152.4 cm 98 % 98 % 77 /min 126 mm[Hg] 82 mm[Hg] Shakeel Davey MA [facility] 4 10:52:34 Date Recorded Systolic blood pressure Diastolic blood pressure Provider Name and Address Organization Details Last Updated DateTime 08/16/2023 146 mm[Hg] 80 mm[Hg] AGNES Baker Attn: Accounting,[address] [place], [address] 08/16/2023 11:13:04 Date Recorded Body height Body mass index (BMI) Body weight Respiratory rate Oxygen saturation Oxygen saturation in Arterial blood by Pulse oximetry Heart rate Systolic blood pressure Diastolic blood pressure Provider Name and Address Organization Details Last Updated DateTime 4 152.4 cm 52.1 kg/m2 721772. 16 g 20 /min 99 % 99 % 90 /min 140 mm[Hg] 82 mm[Hg] Shakeel Davey MA [facility] 4 09:27:41 Date Recorded Systolic blood pressure Diastolic blood pressure Provider Name and Address Organization Details Last Updated DateTime 02/20/2024 110 mm[Hg] 80 mm[Hg] AGNES Baker Attn: Accounting,[address] [place], [address] 02/20/2024 09:46:47 Date Recorded Body height Body mass index (BMI) Body weight Respiratory rate Oxygen saturation Oxygen saturation in Arterial blood by Pulse oximetry Heart rate Systolic blood pressure Diastolic blood pressure Provider Name and Address Organization Details Last Updated DateTime 5 152.4 cm 57.4 kg/m2 930608. 16 g 20 /min 98 % 98 % 82 /min 138 mm[Hg] 88 mm[Hg] Shakeel Davey MA [facility] 5 12:32:08 Social History Question Answer Notes LastModified by Organizat ion Details LastModified Time Tobacco Smoking Status Never Smoker Shakeel Davey MA null, [facility] 08/16/2023 10:50:31 Do You Have An Advance Directive? No Information n ot available 08/16/2023 What Is Your Level Of Alcohol Consumption? None Information not available 08/16/2023 Are You Blind Or Do You Have Difficulty Seeing? No Information n ot available 08/16/2023 What Is Your Level Of Caffeine Consumption? Occasional Information not available 08/16/2023 In The 14 Days Before Symptom Onset, Have You Had Close Contact With A Laboratory-confirm ed COVID-19 While That Case Was Ill? No Information n ot available 08/15/2023 In The 14 Days Before Symptom Onset, Have You Had Close Contact With A Person Who Is Under Investigation For COVID-19 While That Person Was Ill? No Information not available 08/15/2023 Have You Been To An Area Known To Be High Risk For COVID-19? No Information not available 08/15/2023 Are You Currently Employed? No Information not available 02/20/2024 Are You Deaf Or Do You Have Serious Difficulty Hearing? No Information not available 08/16/2023 What Type Of Diet Are You Following? REGULAR Information n ot available 08/16/2023 Are There Any Guns Present In Your Home? No Information not available 08/16/2023 What Was The Date Of Your Most Recent Tobacco Screening? 05/14/2024 Information not available 05/14/2024 What Is Your Relationship Status? Information not available 05/14/2024 Do You Use Your Seat Belt Or Car Seat Routinely? Yes Information not available 08/16/2023 Do You Have Smoke And Carbon Monoxide Detectors In Your Home? Yes Information not available 08/15/2023 Do You Use Any Illicit Or Recreational Drugs? No Information not available 08/16/2023 Do You Use Sunscreen Routinely? Yes Information not available 08/16/2023 Has Tobacco Cessation Counseling Been Provided? Yes Information not available 08/15/2023 On What Date Was Tobacco Cessation Counseling Provided? 05/14/2024 Information not available 05/14/2024 Do You Or Have You Ever Used Any Other Forms Of Tobacco Or Nicotine? No Information not available 08/16/2023 Sex: Female Functional Status Question Answer Note LastModified by Organization D etails LastModified Time Are you able to care for yourself? Yes Information n ot available 08/16/2023 What is your exercise level? None Information not available 08/16/2023 Mental Status None recorded. Family History Relationship Description Onset Age of this Age Resolved Age Notes LastModified by Organization Details LastModified Time Mother Diabetes mellitus [email or web address] Not available 2023 12:14:22 Medical History Condition Response Coronary Artery Disease N Other N Atrial Fibrillation N High Blood Pressure N Depression N COPD N Blood Clots N Anxiety Disorder N Muscle, Joint, or Bone Problems N Acid Reflux (GERD) N Cancer N Stroke N Headaches N Kidney or Bladder Problems N Skin Problems N Asthma Y Allergies N Hepatitis N High Cholesterol N Liver Disease N Thyroid Problems Y GI Problems N Anemia N Heart Attack ([place]) N Diabetes Y Seizures/Epilepsy N Heart Failure N Osteoporosis N Gynecological History Statement/Question Response Menses Monthly N Current Control Method Menopause Obstetrics History GPAL:G 5 P 5 0 0 5 Type Value Full Term 5 Induced 0 Spontaneous 0 Premature 0 Living 5 Total 5 Past Encounters Encounter ID Performer Location Encounter Start Date Encounter Closed Date Diagnosis/Indication Diagnosis SNOMED-CT Code Diagnosis ICD10 Code Diagnosis Note [id number] AGNES Baker [facility] [address] [place] [address] 08/16/2023 10:07:27 08/16/2023 11:35:19 Neck pain 15659847 M54.2 check xray cspine and refill cyclobenza eugenia 10mg tid Prn. Thoracic back pain 48305 8004 M54.6 check xray of tspine. Low back pain 682848106 M54.50 check xray of lumbosacra l spine. Contusion of left foot 4839482453 3697025 S90.32XA stubbed foot on the door and wall. left lateral foot pain. send for xray left foot. r/o fx. Uncontroll ed type 2 diabetes mellitus 375485037 E11.65 seeing endo at [facility] now. f/u in 3 months again. meds have been sent out by them Hypothyroidism 86339534 E03.9 Meds sent out by [facility] in [place] . Long-term drug therapy 844161196 Z79.978 [id number] AGNES Baker [facility] [address] [place] [address] 02/20/2024 09:06:39 02/20/2024 13:43:28 Body mass index 40+ - severely obese 332540373 Z68.43 bmi 52.1 Obesity 478429884 E66.9 discussed healthy diet, exercise, controllin g carbohydra avila and added sugars in the diet Acute sinusitis 79100717 J01.90 Start Omnicef 300 mg twice daily for 7 days Disturbance in speech 29 746722 R47.9 3 days ago an episode of transient speech disturbanc e where words were not coming out right. she does have some dizziness and left sided headache present. the episode lasted a few minutes. Refer for MRI of the brain with and without contrast Mixed hyperlipidemia 267 494712 E78.2 Patient is on rosuvastat in 40 mg daily and is up-to-date on labs. She is following Microalbum inuric diabetic nephropathy 341408334 E11.21 Noted on labs at this time. We have discussed institutin g Dada or Arb therapy in the future Uncontrol ed type 2 diabetes mellitus 540792086 E11.65 seeing [place]o [place] [facility] [place]. last a1c is 7.2%. labs are ordered via their office. Patient is taking metformin therapy as well as glimepirid e and Ozempic and Farxiga. Screening mammography 24 287185 Z12.31 Annual mammogram is due Dizziness 429600197 R42 MRI brain w/wo as ordered above. [id number] AGNES Baker [facility] [address] [place] [address] 05/14/2024 11:47:34 05/14/2024 15:35:14 Body mass index 40+ - severely obese 093694537 Z68.43 bmi 52.1 Morbid obesity 647912185 E66.01 Cough 72404534 R05.9 send for CXR and zpack therapy. Left sided abdominal pain 188514661 R10.9 r/o diverticul ar disease, send for CT scan A/P w/c. Long-term drug therapy 989035623 Z79.899 Uncontroll ed type 2 diabetes mellitus 384010831 E11.65 Acid reflux 093764780 K2 1.9 Health Concerns Section Related Observation LastModified by Organization Detai ls LastModified Time None Recorded Concern Status LastModified by Organization Details LastModified Time None Recorded Advance Directives Directive N: Payers Encounter Date Sequence Insurance Name Policy Number Policy Grimaldo Covered Member ID Grimaldo Member ID Guarantor Name 08/16/2023 1 [facility] [employer] - [employer] (POS II) [id number] Treva Bain [id number] Treva Bain 02/20/2024 1 [employer] [facility] [employer] [facility] [employer] (POS II) [id number] Treva Bain [id number] Treva Bain Notes Date Note Type Note Provider Name and Address Organization Details Recorded Time 024 text/ht ml Back PainReported bypatient.Notes:low back, mid back and neck pain. biggest complaint today is her pain. no injury , just pain.DiabetesReported bypatient.Notes:seeing endocrine in [place]. on ozempic and metformin.HyperlipidemiaReported bypatient.Notes:pt is taking atorvastatin 20mg daily.ThyroidReported bypatient.Notes:seeing endocrine now in [place]. on unithroid 125mcg daily. AGNES Baker Attn: Accounting, [address] [place], [address], [facility] 09/03/2023 15:35:09 024 text/ht ml DiabetesReported bypatient.Notes:seeing endocrine in [place]. on ozempic and metformin.DizzinessReported bypatient.Quality:lightheadedness Severity:some effect on daily activities Duration:lasts <5 minutes Onset/Timing:actual date of onset: (3 weeks ago) Context:non-smoker Modifying Factors:change in position Alleviating factors:holding still Aggravating factors:bending/stooping; moving head; positional change Associated Symptoms:slurred speech;headache;head pressure Prior opinionPCPHyperlipidemiaReported bypatient.Notes:pt is taking atorvastatin 20mg daily.Sinusitis/AllergyReported bypatient.Location:maxillary; frontal Associated Symptoms:nasal discharge from nostrils;facial pain;sinus pain Onset/Timing:new onset Quality:worsening;dull;congested Risk Factors:no current smoking or tobacco use Prior opinionPCPThyroidReported bypatient.Notes:seeing endocrine now in [place]. on unithroid 125mcg daily. AGNES Baker Attn: Accounting, [address] [place], [address], [place] [facility] 03/02/2024 17:33:50 OBGyn Episode No OBEpisode recorded.
--- OUTSIDE RECORDS SUMMARY | 2024-05-21 12:25 | XMS_ITS | Data Portability ---
Author Organization [facility] [place] Address [address] [place] [address] Assessment Encounter Date Assessment Date Assessment LastModified by Organization Details LastModified Time 03/24/2020 03/24/2020 Annual gynecological exam performed. Patient will come back in a year unless there are new symptoms. [email or web address] Not available 03/24/2020 14:53:09 Plan of Treatment Reminders Order Date Submit Date Provider Last Modified By Organization Details Last Modified Time Details Appointments None record ed. Lab None record ed. Referral None record ed. Procedures None record ed. Surgeries None record ed. Imaging None record ed. Medication Orders None record ed. Patient TargetsNo targets recorded. Patient Instructions Encounter Date Encounter Id Patient Instructions Last Modified By Organization Details Last Modified Time 03/24/2020 [id number] [email or web address] Not available 09:51:04 Reason for Referral None Reported. Results Created Date Observation Date Name Description Value Unit Range Abnormal Flag Note LastModifiedBy Organization Detail LastModifiedTime Result Notes None recorded. Medical Equipment None Reported. Allergies No known drug allergies Medications Not known to be on any medication Vitals Date Recorded Body height Body mass index (BMI) Body weight Systolic blood pressure Diastolic blood pressure Provider Name and Address Organization Details Last Updated DateTime 03/24/2020 154.94 cm 54 kg/m2 958374.4 2 g 137 mm[Hg] 81 mm[Hg] Franchesca Powell [facility] 0 14:58:27 Social History None recorded. Functional Status None recorded. Mental Status None recorded. Family History Relationship Description Onset Age of this Age Resolved Age Notes LastModified by Organization Details LastModified Time Maternal Aunt Diabetes mellitus [email or web address] Not available 2019 14:52:28 Medical History Condition Response Diabetes Y Thyroid Problems Y Asthma Y High Cholesterol Y Gynecological HistoryNo gynecological history recorded. Obstetrics History GPAL:G 0 P 0 0 0 0 Past Encounters Encounter ID Performer Location Encounter Start Date Encounter Closed Date Diagnosis/Indication Diagnosis SNOMED-CT Code Diagnosis ICD10 Code Diagnosis Note [id number] Daniela Webber [facility] [address] [address] 03/24/2020 14:49:38 03/29/2020 14:19:02 Gynecologic examination 01005355 Z01.419 Take Calcium with Vitamin D 12-1500mg daily. Do monthly self breast exams. It is advised to get annual flu shot in the fall and she could obtain at [facility] or [facility] care clinic. If you haven't received the Tdap vaccine in the last 10 years you should obtain one as well. Have mammogram yearly, bone density every 2-3 years and colonoscop y every 5-10 years depending on findings and history. Engage in daily exercise of low impact aerobic exercise 45-60 minutes 4-5 times weekly. Avoid tobacco and illicit drugs as well as using moderation with alcohol intake less than 1-2 8 oz beverages daily. This lifestyle behavior pattern will lead to less health conditions and longer life span. If BMI greater than 25 weight watchers or dietary consult advised. Questions have been answered. Patient appears to understand instructio ns, but if you have any further questions call or respond to this email We discussed colonoscop y which she is hesitant to do. We discussed that this is the preferred colon cancer screening; demetria with hx DM/THyroid issues; We also discussed cologuard as a starting point. She is aware this test is q3yrs; and that it would be preferred she complete a colonoscop y after this at the very least. She verbalized understand ing of r/b's of this screening for both Cologuard/ colonoscop y. She agreed to start with cologuard & form was completed. Needs to be sent to PCP. Mammo ordered. Pap/hpv sent SHe denies abn paphpv hx. x 30yrs. Health Concerns Section Related Observation LastModified by Organization Detai ls LastModified Time None Recorded Concern Status LastModified by Organization Details LastModified Time None Recorded Advance Directives Directive None Recorded Payers Encounter Date Sequence Insurance Name Policy Number Policy Grimaldo Covered Member ID Grimaldo Member ID Guarantor Name 03/24/2020 1 [email or web address] Elia Bain [id number] Treva Bain Notes Date Note Type Note Provider Name and Address Organization Details Recorded Time 03/24/2020 text/html Annual GYNReport ed bypatient.History: no gynecologic complaints Menstrual cycle:Postmenopaus e Urinary symptoms:No hematuria; No incontinence Vulva:No genital lesion Vagina:Normal vaginal discharge Breast:No breast pain; No breast lump; No nipple discharge Current Contraception:Sati sfied with current contraception; Monogamous relationship Sexual complaints:No sexual complaints; No pain during intercourse; Normal libido Menopausal Symptoms:No menopausal symptoms; Normal vaginal lubrication Psychological symptoms:No depression; No anxiety; No PMDD Preventive measures:Encourage self breast examination; Encourage regular exercise; Encourage no tobacco use; Encourage regular mammograms starting age 40; Needs to schedule mammogram; Needs to schedule colonoscopy Daniela Webber [facility]- [address], [place], [address], [facility] 03/25/2020 09:55:00 OBGyn Episode Ob Episode Information Episode Created Date Number of Fetuses Patient Bloodtype Patient rh Status Prepregnancy Weight lbs Domestic Partner Domestic Partner Phone Father Name Commercial Loan Closer Status 03/24/20 20 1 CLOSED Fetus Data First Name Last Name Admitted to NICU Weight (g) Sex Living Outcome Pediatric Complications Fetus ID Race Codes Race Delivery Type [id number] Primary Matt Calculation Initial Matt Date Initial Exam Date Initial Exam Provider Initial Ultrasound Date Last Menstrual Period Date Ultra Sound Weeks Gestation 0 Eighteen To Twenty Week Matt Update Ultra Sound Date Fundal Height At Umbil Quickening Date Ultra Sound Latest Weeks Gestation Final Matt Confirmed By Final Matt Confirmed Date Final Matt Date Ultra Sound Latest Days Gestation 0 0 Menstrual History Last Menstrual Date Menses Monthly On Bcp Conception Prior Menses Frequency Hcg Plus Date Menarche Onset Age Delivery Information Delivery Date Delivery Type Labor Anesthesia Weeks Gestation Incision Type Labor Labor Length Hrs Delivered By Post Complications Tubal Sterilization Discharge Date Comments 6 Discharge Information Feeding Method Contraceptive Method Maternal HG B and HCT Levels Ob Episode Information Episode Created Date Number of Fetuses Patient Bloodtype Patient rh Status Prepregnancy Weight lbs Domestic Partner Domestic Partner Phone Father Name Commercial Loan Closer Status 03/24/20 20 1 CLOSED Fetus Data First Name Last Name Admitted to NICU Weight (g) Sex Living Outcome Pediatric Complications Fetus ID Race Codes Race Delivery Type [id number] Primary Matt Calculation Initial Matt Date Initial Exam Date Initial Exam Provider Initial Ultrasound Date Last Menstrual Period Date Ultra Sound Weeks Gestation 0 Eighteen To Twenty Week Matt Update Ultra Sound Date Fundal Height At Umbil Quickening Date Ultra Sound Latest Weeks Gestation Final Matt Confirmed By Final Matt Confirmed Date Final Matt Date Ultra Sound Latest Days Gestation 0 0 Menstrual History Last Menstrual Date Menses Monthly On Bcp Conception Prior Menses Frequency Hcg Plus Date Menarche Onset Age Delivery Information Delivery Date Delivery Type Labor Anesthesia Weeks Gestation Incision Type Labor Labor Length Hrs Delivered By Post Complications Tubal Sterilization Discharge Date Comments 0 Discharge Information Feeding Method Contraceptive Method Maternal HG B and HCT Levels Ob Episode Information Episode Created Date Number of Fetuses Patient Bloodtype Patient rh Status Prepregnancy Weight lbs Domestic Partner Domestic Partner Phone Father Name Commercial Loan Closer Status 03/24/20 20 1 CLOSED Fetus Data First Name Last Name Admitted to NICU Weight (g) Sex Living Outcome Pediatric Complications Fetus ID Race Codes Race Delivery Type [id number] Primary Matt Calculation Initial Matt Date Initial Exam Date Initial Exam Provider Initial Ultrasound Date Last Menstrual Period Date Ultra Sound Weeks Gestation 0 Eighteen To Twenty Week Matt Update Ultra Sound Date Fundal Height At Umbil Quickening Date Ultra Sound Latest Weeks Gestation Final Matt Confirmed By Final Matt Confirmed Date Final Matt Date Ultra Sound Latest Days Gestation 0 0 Menstrual History Last Menstrual Date Menses Monthly On Bcp Conception Prior Menses Frequency Hcg Plus Date Menarche Onset Age Delivery Information Delivery Date Delivery Type Labor Anesthesia Weeks Gestation Incision Type Labor Labor Length Hrs Delivered By Post Complications Tubal Sterilization Discharge Date Comments 7 Discharge Information Feeding Method Contraceptive Method Maternal HG B and HCT Levels Ob Episode Information Episode Created Date Number of Fetuses Patient Bloodtype Patient rh Status Prepregnancy Weight lbs Domestic Partner Domestic Partner Phone Father Name Commercial Loan Closer Status 03/24/20 20 1 CLOSED Fetus Data First Name Last Name Admitted to NICU Weight (g) Sex Living Outcome Pediatric Complications Fetus ID Race Codes Race Delivery Type [id number] Primary Matt Calculation Initial Matt Date Initial Exam Date Initial Exam Provider Initial Ultrasound Date Last Menstrual Period Date Ultra Sound Weeks Gestation 0 Eighteen To Twenty Week Matt Update Ultra Sound Date Fundal Height At Umbil Quickening Date Ultra Sound Latest Weeks Gestation Final Matt Confirmed By Final Matt Confirmed Date Final Matt Date Ultra Sound Latest Days Gestation 0 0 Menstrual History Last Menstrual Date Menses Monthly On Bcp Conception Prior Menses Frequency Hcg Plus Date Menarche Onset Age Delivery Information Delivery Date Delivery Type Labor Anesthesia Weeks Gestation Incision Type Labor Labor Length Hrs Delivered By Post Complications Tubal Sterilization Discharge Date Comments 4 Discharge Information Feeding Method Contraceptive Method Maternal HG B and HCT Levels Ob Episode Information Episode Created Date Number of Fetuses Patient Bloodtype Patient rh Status Prepregnancy Weight lbs Domestic Partner Domestic Partner Phone Father Name Commercial Loan Closer Status 03/24/20 20 1 CLOSED Fetus Data First Name Last Name Admitted to NICU Weight (g) Sex Living Outcome Pediatric Complications Fetus ID Race Codes Race Delivery Type [id number] Primary Matt Calculation Initial Matt Date Initial Exam Date Initial Exam Provider Initial Ultrasound Date Last Menstrual Period Date Ultra Sound Weeks Gestation 0 Eighteen To Twenty Week Matt Update Ultra Sound Date Fundal Height At Umbil Quickening Date Ultra Sound Latest Weeks Gestation Final Matt Confirmed By Final Matt Confirmed Date Final Matt Date Ultra Sound Latest Days Gestation 0 0 Menstrual History Last Menstrual Date Menses Monthly On Bcp Conception Prior Menses Frequency Hcg Plus Date Menarche Onset Age Delivery Information Delivery Date Delivery Type Labor Anesthesia Weeks Gestation Incision Type Labor Labor Length Hrs Delivered By Post Complications Tubal Sterilization Discharge Date Comments 9 Discharge Information Feeding Method Contraceptive Method Maternal HG B and HCT Levels
--- OUTSIDE RECORDS SUMMARY | 2024-05-21 12:26 | XMS_ITS | Clinical Summary ---
Author Organization [facility] Address [address] [place] [address] Care Team Providers Care Nurse Research Name Role Phone Marilyn Ro MD Primary Care Provider Source Comments [facility],non-owned Affiliates and Associated Physician Practices is amultiple site organization consisting of ambulatory clinics and hospital sitesin [place] and [place]. This disclosure is being madepursuant to the Care Everywhere program and may not contain all information available regarding this patient. Last updated 17.[facility] [employer] [facility] Allergies Active Allergy Reactions Criticality Noted Date Comments Codeine Nausea and/or Vomiting Low 05/06/2013 Active Problems Problem Noted Date Diagnosed Date Headache 05/17/2013 Chronic sinusitis 04/09/2013 Acute recurrent sinusitis 04/09/2013 Family History Medical History Relation Name Comments Eczema Mother Relation Name Status Comments Mother Social History Tobacco Use Types Packs/Day Years Used Date Smoking Tobacco: Never Smokeless Tobacco: Never Alcohol Use Standard Drinks/Week Comments No 0 (1 standard drink = 0.6 oz pur e alcohol) Sex and Gender Information Value Date Recorded Sex Assigned at Not on file Gender Identity Not on file Sexual Orientation Not on file Last Filed Vital Signs Vital Sign Reading Time Taken Comments Blood Pressure 124/78 09/03/2013 9:33 AM CDT Pulse 100 09/03/2013 9:33 AM CDT Temperature 36.6 C (97.8 F) 05/06/2013 12:45 PM MAIL TELLER Respiratory Rate 18 05/06/2013 1:15 PM MAIL TELLER Oxygen Saturation 92% 05/06/2013 1:15 PM MAIL TELLER Inhaled Oxygen Concentration - - Weight 127 kg (280 lb) 09/03/2013 9:33 AM CDT Height 162.6 cm (5' 4 ) 09/03/2013 9:33 AM CDT Body Mass Index 48.06 09/03/2013 9:33 AM CDT Plan of Treatment Health Maintenance Due Date Last Done Comments COLOGUARD (AGES 45-75) - COL ON CA SCREENING 1967 COLON MONITORING 1967 COLONOSCOPY - COLON CA SCREENING 1967 CT COLONOGRAPHY - COLON CA SCREENING 1967 Colorectal Cancer Screening 1967 FIT - COLON CA SCREENING 1967 FLEX SIG - COLON CA SCREENING 1967 LIPID TESTING 1967 MAMMOGRAM 1967 PAP SMEAR 1967 HIV SCREENING 06/11/1982 HEPATITIS C SCREENING 06/07/1985 DTAP/TDAP/TD VACCINES (1 - Tdap) 06/11/1986 HEPATITIS B VACCINE (1 of 3 - 19+ 3-dose series) 06/11/1986 PNEUMOCOCCAL VACCINE 50+ (1 of 1 - PCV) 06/11/2017 ZOSTER VACCINE (1 of 2) 06/11/2017 COVID-19 VACCINE (1 - 2023-2 5 season) 2023 INFLUENZA VACCINE (#1) 2023 DEPRESSION SCREENING 04/03/2024 HIB VACCINE Aged Out No longer eligi ble based on patient's age to complete this topic HPV VACCINE Aged Out No longer eligi ble based on patient's age to complete this topic MENINGOCOCCAL (Group B) VACCINE Aged Out No longer eligible based on patient's age to complete this topic MENINGOCOCCAL VACCINE Aged Out No olimpia shellie eligible based on patient's age to complete this topic PNEUMOCOCCAL VACCINE Aged Out No long er eligible based on patient's age to complete this topic Care Teams Nurse Research Relationship Specialty Start Date End Date Marilyn Ro MD [address] [place] [address] PCP - General 03/19/13
--- OUTSIDE RECORDS SUMMARY | 2024-05-21 12:26 | XMS_ITS | Patient Health Record ---
Author Organization [facility] Address [address] [facility] [address] [place], [place] [id number] Care Team Providers Care Mandrel Maker Name Role Phone BRII KIM Unavailable [phone] Reason For Referral No Information Plan Of Treatment No Information
--- OUTSIDE RECORDS SUMMARY | 2024-05-21 12:26 | XMS_ITS ---
Author Organization [facility] Address [address] [place], [place] [id number] Care Team Providers Care Perfect Binder Setter Name Role Phone BRII KIM Unavailable [phone] REASON FOR VISIT cans fell on toe, now bone exposed Encounters Encounter Location Date Provider Diagnosis [facility] YADIRA HERNANDEZ [address] [place], [place] [id number] 12/18/2023 BRII KIM Plan Of Treatment No Information Progress Notes * Treva BAINDOB: 8 (58 yo F)Acc No.[id number]:12/18/2023 Progress Notes Patient: Treva BEAULIEU Provider: Len Kim DPM :1965 A ge:58 Y S ex:Female Date:12/18/2023 Address:[address] [place], [place] [id number] Subjective: * Chief Complaints: * 1 . Cans fell on toe, now bone exposed. * Medical History: Objective: * Vitals: Assessment: Plan: * Treatment: * Billing Information: * Visit Code: * Procedure Codes: * Electronic signature of BRII KIM DPM on 05/21/2024 at 12:25 PM GUT CLEANER Sign off status: Pending * Provider: Len Kim DPM Date: 12/18/2023 Generated for Demetrius buchanan/Everardo/eTransmitting on: 0 05/21/2024 12:25 PM GUT CLEANER
--- OUTSIDE RECORDS SUMMARY | 2024-05-21 12:26 | XMS_ITS | Referral Summary ---
Author Organization [facility] Address [address] [place] [address] Care Team Providers Care Director Of Medical Staff Services Name Role Phone Warrenjaiden Ching ALARCON Primary Care Pr ovider Allergies Active Allergy Reactions Criticality Noted Date Comments Codeine Nausea only Reaction: NAUSEA, Medications cetirizine (ZyrTEC) 10 mg capsule 1 tablet daily 0 01/05/2011 Active phenylephrine-a cetaminophen-GG (TYLENOL SINUS SEVERE) 5-325-200 mg tablet 0 0 02/17/2016 Active metFORMIN (GLUCOPHAGE) 500 mg tablet take 1 tablet by oral route 2 times every day with morning and evening meals 0 0 02/17/2016 Active Active Problems Problem Noted Date Diagnosed Date Steatosis of liver 02/11/2016 Overview (07/06/2016): Hepatic steatosis Calculus of kidney 02/11/2016 Overview (07/08/2016): Kidney stone Type 2 diabetes mellitus 02/11/2016 Overview (07/08/2016): Type 2 diabetes mellitus Asthma 08/17/2013 Overview (07/07/2016): Asthma Morbid obesity 05/04/2009 Overview (07/08/2016): Morbid obesity Seasonal allergic rhinitis 04/03/2009 Overview (07/08/2016): Seasonal nasal allergies Immunizations Immunization Administration Dates Next Due Influenza, Quadrivalent, Split, Intramuscular Influenza, Split 12/23/2011 Pneumococcal Polysaccharide PPV23 02/17/2016 Tdap 12/21/2006 Social History Tobacco Use Types Packs/Day Years Used Date Smoking Tobacco: Never Assessed Comments Unknown Sex and Gender Information Value Date Recorded Sex Assigned at Not on file Legal Sex Female 9:27 AM INSTRUCTOR OF SOCIOLOGY Gender Identity Not on file Sexual Orientation Not on file Last Filed Vital Signs Vital Sign Reading Time Taken Comments Blood Pressure 130/86 02/17/2016 1:41 PM INSTRUCTOR OF SOCIOLOGY Pulse 96 02/17/2016 1:41 PM INSTRUCTOR OF SOCIOLOGY Temperature - - Respiratory Rate - - Oxygen Saturation 96% 02/17/2016 1:41 PM INSTRUCTOR OF SOCIOLOGY Inhaled Oxygen Concentration - - Weight 124.3 kg (274 lb) 02/17/2016 1:41 PM INSTRUCTOR OF SOCIOLOGY Height 162.6 cm (5' 4 ) 02/17/2016 1:41 PM INSTRUCTOR OF SOCIOLOGY Body Mass Index 47.03 02/17/2016 1:41 PM INSTRUCTOR OF SOCIOLOGY Plan of Treatment Not on file Insurance [facility] SIG [id number] Care Teams Director Of Medical Staff Services Relationship Specialty Start Date End Date Ching Nice PA PCP - General Physician [employer] 09/18/18
--- OUTSIDE RECORDS SUMMARY | 2024-05-21 12:26 | XMS_ITS | Clinical Summary ---
Author Organization [facility] Address [address] [place] [address] Care Team Providers Care Visual And Stock Associate Name Role Phone WarrenJason hwangaaron ALARCON Primary Care Pr ovider Allergies Active [...] 12/23/2011 Pneumococcal Polysaccharide PPV23 02/17/2016 Tdap 12/21/2006 Surgical History Surgery Date Site/Laterality Comments OTHER SURGICAL HISTORY X 5 OTHER SURGICAL HISTORY Chronic sinusitis: Functional sinus surgery, [facility] Medical History Medical History Date Comments Hx Other Medical Chronic sinusit is; Comments: ECS 02/23/2016 - Social History Tobacco Use Types Packs/Day Years Used Date Smoking Tobacco: Never Assessed Comments Unknown Sex and Gender Information Value Date Recorded Sex Assigned at Not on file Legal Sex Female 9:27 AM COMPLIANCE AUDITOR Gender Identity Not on file Sexual Orientation Not on file Obstetrics History Last Filed Vital Signs Vital Sign Reading Time Taken Comments Blood Pressure 130/86 02/17/2016 1:41 PM COMPLIANCE AUDITOR Pulse 96 02/17/2016 1:41 PM COMPLIANCE AUDITOR Temperature - - Respiratory Rate - - Oxygen Saturation 96% 02/17/2016 1:41 PM COMPLIANCE AUDITOR Inhaled Oxygen Concentration - - Weight 124.3 kg (274 lb) 02/17/2016 1:41 PM COMPLIANCE AUDITOR Height 162.6 cm (5' 4 ) 02/17/2016 1:41 PM COMPLIANCE AUDITOR Body Mass Index 47.03 02/17/2016 1:41 PM COMPLIANCE AUDITOR Plan of Treatment Not on file Insurance [employer] SIG [id number] [facility] [address] [place] [id number] Care Teams Visual And Stock Associate Relationship Specialty Start Date End Date Ching Nice PA PCP - General Physician Candy Roller 09/18/18
--- OUTSIDE RECORDS SUMMARY | 2024-05-21 12:26 | XMS_ITS | Patient Health Summary ---
Author Organization [facility] [employer] Address [address] [place] [address] Care Team Providers Care Sound Mixer Name Role Phone Marilyn Ro MD Primary Care Provider [phone] Note from [facility],non-owned Affiliates and Associated Physician Practices is amultiple site organization consisting of ambulatory clinics and hospital sitesin [place], [place], [place] and [place]. This disclosure is being madepursuant to the Care Everywhere program and may not contain all information available regarding this patient. Last updated 17.[facility] [employer] Allergies * Codeine(Nausea and/or Vomiting) -Low Criticality Active Problems Problem Noted Date Diagnosed Date Headache 05/17/2013 Chronic sinusitis 04/09/2013 Acute recurrent sinusitis 04/09/2013 Social History Tobacco Use Types Packs/Day Years [...] 36.6 C (97.8 F) 05/06/2013 12:45 PM BACK END ENGINEER Respiratory Rate 18 05/06/2013 1:15 PM BACK END ENGINEER Oxygen Saturation 92% 05/06/2013 1:15 PM BACK END ENGINEER Inhaled Oxygen Concentration - - Weight 127 kg (280 lb) 09/03/2013 9:33 AM CDT Height 162.6 cm (5' 4 ) 09/03/2013 9:33 AM CDT Body Mass Index 48.06 09/03/2013 9:33 AM CDT Procedures * CULTURE AEROBIC(Performed 06/14/2013) * PATHOLOGY TISSUE(Performed 05/06/2013) * HCG BLOOD QUALITATIVE(Performed 05/06/2013) * HCG BLOOD QUALITATIVE(Performed 05/06/2013) Results * CULTURE AEROBIC (06/14/2013 3:00 PM CDT) Culture Routine LIGHT GROWTH OF GRAM POSITIVE COCCI BEING IDENTIFIED. GRAM POSITIVE COCCI IDENTIFIED [STAPHYLOCOCCUS AUREUS]. ADDITIONAL GROWTH OF GROWTH OF RESPIRATORY TIMOTHY. [facility] Culture Results [facility] Organism ID STAPHYLOCOCCUS AUREUS [facility] Comment:STAPHYLOCOCCUS AUREU S Nasal 06/14/2013 3:00 PM CDT 06/14/2013 6:53 PM CDT Narrative [facility] - 06/16/2013 9:20 AM CDT RIGHT NASAL CAVITY Organism Antibiotic Method Susceptibility Staphylococcus aureus Clindamycin CULTURE AEROBIC 0.25: Sensitive Staphylococcus aureus Doxycycline CULTURE AEROBIC <=0.5: Sensitive Staphylococcus aureus Erythromycin CULTURE AEROBIC <=0.25: Sensitive Staphylococcus aureus Gentamicin CULTURE AEROBIC <=0.5: Sensitive Staphylococcus aureus Levofloxacin CULTURE AEROBIC 0.25: Sensitive Staphylococcus aureus Oxacillin CULTURE AEROBIC <=0.25: Sensitive Comment: OXACILLIN SUSCEPTIBILITY PREDICTS SUSCEPTIBILITY TO BETA-LACTAM/BETA-LACTAMASE INHIBITOR COMBINATIONS, CEPHALOSPORINS, AND CARBAPENEMS. OXACILLIN RESISTANCE PREDICTS RESISTANCE TO ALL PENICILLINS, BETA-LACTAM/BETA-LACTAMASE INHIBITOR COMBINATIONS, CEPHALOSPORINS, AND CARBAPENEMS, WITH THE EXCEPTION OF CEPHALOSPORINS WITH ANTI-MRSA ACTIVITY. Staphylococcus aureus Trimethoprim-sulfa methoxazo le CULTURE AEROBIC <=10: Sensitive Staphylococcus aureus Vancomycin CULTURE AEROBIC 1: Sensitive Chris Bryant MD LAB - MICROBIOLOGY ORDERABLES [address] [phone] * PATHOLOGY TISSUE (05/06/2013 8:44 AM BACK END ENGINEER) AP Surg [facility] Comment: !! EDITED OR CORRECTED RESULTS !! RESULT PREVIOUSLY REPORTED : NOTIFIED [] AT 1800 ON 07/23/13 THIS IS AN ADDENDUM REPORT Addendum - Read full report CLINICAL HISTORY: The patient is a 47-year-old female patient here with a history of acute recurrent sinusitis and chronic sinusitis. FINAL DIAGNOSIS: PARANASAL SINUSES, BILATERAL, CONTENTS, EXCISION: - MILD CHRONIC INFLAMMATION GROSS DESCRIPTION: The specimen is received in formalin, labeled Treva Bain and bilateral sinus contents . It consists of a 10.5 x 6.0 x 1.2 cm aggregate of morcellated, slightly frothy, pink-red soft tissue with admixed dark red, clotted blood received in a cloth and plastic collection device. Nursing Teacher sections are submitted in cassettes A1 and A2. EW for SG/edk MICROSCOPIC DESCRIPTION: Sections of the 'bilateral sinus contents' show multiple fragments of bone, stratified squamous and respiratory epithelium overlying mucinous glands and a stroma that is infiltrated with small numbers of plasma cells and lymphocytes. No evidence of dysplasia or malignancy is seen. No eosinophils are seen. Basement membranes are not thickened. GMS stain is pending and will be reported separately in an addendum. BILLBOARD POSTER HELPER/PW/met The performance characteristics of all immunohistochemical and indirect immunofluorescence stains (if any) cited in this report were determined by the [facility] of [facility] in compliance with CLIA '88 regulations. Some of these tests rely on the use of analyte-specific reagents and are subject to specific labeling requirements by the FDA. Such tests were developed by the [facility] of [facility] and have not been cleared or approved by the FDA. The FDA has determined that such clearance or approval is not necessary. These tests are used for clinical purposes and should not be regarded as investigational or for research. This case has been personally reviewed and interpreted by the attending (teaching) pathologist. Final Diagnosis performed by Cleo Diaz MD. Electronically signed 05/07/2013 ADDENDUM: Both cassettes of bilateral sinus contents (A1, A2) are negative for organisms on the GMS stain. Controls stained appropriately. Addendum #1 performed by Cleo Diaz MD. Electronically signed 07/23/2013 05/06/2013 8:44 AM BACK END ENGINEER 05/06/2013 9:27 AM BACK END ENGINEER [facility] - 07/23/2013 6:00 PM CDT PROBLEM LIST: Patient Active Problem List: Chronic sinusitis Acute recurrent sinusitis PRE-OP DIAGNOSIS: Chronic sinusitis 473.9 OPERATIVE PROCEDURE / FINDINGS: Procedure(s) with comments: BILATERTAL TOTAL ETHOMOIDECTOMY, BLATERAL MAXILLARY ANTROSTOMY, LEFT SPHENOIDOTOMY - [id number] POST-OP DIAGNOSIS: * No post-op diagnosis entered * Collection Date->05/06/13 Collection Time-> 8:44 AM Specimen A->Sinus Bilateral Sinus Content; Permanent Chris Bryant MD LAB - PATHOLOGY/CYT OLOGY ORDERABLES Performing Organization Address City/[facility]/ZIP Co de Phone Number [address] [phone] * HCG BLOOD QUALITATIVE (05/06/2013 8:10 AM BACK END ENGINEER) Only the most recent of2 resultswithin the time period is included. NEGATIVE NEGATIVE [facility] Comment:PERFORMED BY: SRIKANTH MORENO 05/06/2013 8:10 AM BACK END ENGINEER 05/06/2013 9:42 AM BACK END ENGINEER Chris Bryant MD LAB - CHEMISTRY ORD ERABLES Performing Organization Address City/[facility]/ZIP Co de Phone Number [address] [phone] Care Teams Sound Mixer Relationship Specialty Start Date End Date Marilyn Ro MD [address] [place] [address] [place] [id number] PCP - General 03/19/13
--- OUTSIDE RECORDS SUMMARY | 2024-05-21 12:26 | XMS_ITS | Referral Summary ---
Author Organization [facility] [employer] Address [address] [facility] [place] [address] Care Team Providers Care Clinical Project Assistant Name Role Phone Marilyn Ro MD Primary Care Provider [phone] Source Comments [facility] [employer]),non-owned Affiliates and Associated Physician Practices is amultiple site organization consisting of ambulatory clinics and hospital sitesin [place], [place], [place] and [place]. This disclosure is being madepursuant to the Care Everywhere program and may not contain all information available regarding this patient. Last updated 17.[facility] [employer] Allergies Active Allergy Reactions Criticality Noted Date [...] 36.6 C (97.8 F) 05/06/2013 12:45 PM TOE [employer]MER STITCHDOWNS Respiratory Rate 18 05/06/2013 1:15 PM TOE [employer] STITCHDOWNS Oxygen Saturation 92% 05/06/2013 1:15 PM TOE [employer] ST[employer]DOWNS Inhaled Oxygen Concentration - - Weight 127 kg (280 lb) 09/03/2013 9:33 AM CDT Height 162.6 cm (5' 4 ) 09/03/2013 9:33 AM CDT Body Mass Index 48.06 09/03/2013 9:33 AM CDT Plan of Treatment Not on file Care Teams Clinical Project Assistant Relationship Specialty Start Date End Date Marilyn Ro MD [address] [place] [address] [place] [id number] PCP - General 03/19/13
[2024-05-21 13:02] LABS: Estimated Glomerular Filt Rate > 60
== END 2024-05-21 12:22 | disposition home or self-care (01) ==
PROVIDERS: PCP Physician Assistant; Visit Provider Physician Assistant
DX: N28.89 Other specified disorders of kidney and ureter (principal); R05.9 Cough, unspecified; R10.9 Unspecified abdominal pain
CPT/HCPCS: 71046; 74177; Q9967

== ENCOUNTER 2024-09-09 00:37 | Day surgery (SDC) | payer OTHER, SELFPAY ==
[2024-08-27 14:26] VITALS: BMI 49.1
--- OUTSIDE RECORDS SUMMARY | 2024-09-09 00:40 | XMS_ITS | Data Portability ---
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 Plan of Treatment Reminders Order Date Submit Date Provider Last Modified By Organization Details Last Modified Time Details Appointments None recorded. Lab None recorded. Referral EGD referral [address] [facility], [address], [address], [place], [address], 5 13:58:22 Procedures None recorded. Surgeries None recorded. Imaging RF, upper gastrointe stinal tract, w/ contrast PO 2024 025 [facility] (Imaging), [address] [place] [address] [place] [address], [address], 5 15:23:33 CT, abdomen + pelvis, w/ contrast 2024 025 [facility] ([facility]), [facility] [address] [place] [address], [address], 5 14:55:43 XR, chest, 2 view 2024 025 [facility] (Imaging), [facility] [address], [address], 5 18:30:28 MAMMO, screening, digital, bilateral [address], [address], [place], [address], 5 11:33:31 MRI, brain, w/wo contrast 2023 024 [facility] (Imaging), [address] [facility] [address], [place], [address], 4 15:12:57 XR, cervical spine, 2 or 3 view 2023 024 [facility] (Imaging), [address] [facility] [address], [place], [address], 4 11:34:19 XR, thoracic spine 2023 024 [facility] ([facility]aging), [address] [facility] [address] [facility], [place], [address], 4 17:25:33 XR, lumbosacra l spine, 2 or 3 view 2023 024 [facility] ([facility]), [address] [facility] [address] [facility], [place], [address], 4 17:51:12 XR, foot, 3 or more view 2023 024 [facility] (Imaging), [address] [facility] [address] [facility], [place], [address], 4 17:50:44 Medication Orders azithromyc in 250 mg tablet 2024 025 [facility] #[id number], [address] [place], [address], 5 15:05:43 cefdinir 300 mg capsule 2023 025 [facility]/Pharmacy #[id number], [address] [place], [address], 12:35:46 cyclobenza eugenia 10 mg tablet 2023 024 [id number], [address] [place], [address], 12:29:00 Patient TargetsNo targets recorded. Patient Instructions Encounter Date Encounter Id Patient Instructions Last Modified By Organization Details Last Modified Time 02/20/2024 [id number] A healthy lifestyle: care instructions Not available 02/20/2024 09:43:11 05/14/2024 [id number] A healthy lifestyle: care instructions Not available 05/14/2024 12:45:40 Reason for Referral EGD Referral for Acid reflux Referring Physician: Ching Martin, Internal Medicine, Encounter Date: 05/14/2024 Results Created Date Observation Date Name Description Value Unit Range Abnormal Flag Note LastModifiedBy Organization Detail LastModifiedTime 08/17/1908/16/2023 XR, thora cic spine No observ ation record ed. [address], [place], [address], 08/23/2023 13:13:41 08/17/19 24 08/16/2023 XR, lumbo sacra l spine , 2 or 3 view No observ ation record ed. [address], [place], [address], 08/23/2023 13:13:41 08/17/19 24 08/16/2023 XR, foot, 3 or more view No observ ation record ed. [address], [place], [address], 08/22/2023 11:34:03 03/04/20 24 03/04/2024 MRI, brain , w/wo contr ast No observ ation record ed. [facility] [address], [place], [address], 03/05/2024 10:53:02 04/01/20 24 03/09/2020 MAMMO , scree serg, digit al, bilat eral No observ ation record ed. BARCODE Not Available 2023 14:15:43 05/16/19 25 05/16/2024 RF, upper gastr ointe paul l tract , w/ contr ast PO No observ ation record ed. [facility] [address], [place], [address], 05/20/2024 17:11:05 05/21/19 25 05/21/2024 CT, abdom en + pelvi s, w/ contr ast No observ ation record ed. [address], [place], [address], 05/22/2024 14:14:07 05/21/19 25 05/21/2024 XR, chest , 2 view No observ ation record ed. [address], [place], [address], 05/22/2024 14:14:39 Result Notes None recorded. Problems Name Problem SNOMED Code Status Onset Date Resolution Date Notes Provider Name and Address Organization Details Recorded Time Uncontrolled type 2 diabetes mellitus 923430925 Active 2023 AGNES Baker Attn: Alon cordero,[address] [facility], [place], [address], [facility] - COUNTS INCLUDE 234 BEDS AT [facility] 4 15:34:19 Hypothyroidism 26963277 Active 2023 AGNES Baker Attn: Alon cordero,[address] [facility], [place], [address], [facility] - SI 4 15:34:20 Long-term drug therapy Active 2023 AGNES Baker Attn: Alon cordero,[address] [facility], [place], [address], [facility] - SI 4 15:34:25 Neck pain 56868557 Active 2023 AGNES Baker Attn: Accountin g,[address] [facility], [place], [address], [place] - [facility] 4 15:34:52 Thoracic back pain 179832994 Active 2023 AGNES Baker Attn: Accountin g,[address] [facility], [place], [address], [place] [facility] 4 15:34:53 Low back pain 919768246 Active 2023 AGNES Baker Attn: Accountin g,[address] [facility], [place], [address], [place] - [facility] 4 15:34:54 Body mass index 40+ - severely obese 284415915 Active 2023 Shakeel Davey MA null, [place] - [facility] 4 09:25:01 Obesity 055488655 Active 2023 AGNES Baker Attn: Accountin g,[address] [facility], [place], [address], [place] [facility] 4 09:33:43 Microalbuminur ic diabetic nephropathy 867867500 Active 2023 AGNES Baker Attn: Accountin g,[address] [facility], [place], [address], [place] - [facility] 4 09:37:02 Mixed hyperlipidemia 547744457 Active 2023 AGNES Baker Attn: Accountin g,[address] [facility], [place], [address], [place] [facility] 4 09:37:03 Morbid obesity 513628105 Active 2024 AGNES Baker Attn: Accountin g,[address] [facility], [place], [address], [place] - [facility] 5 12:45:08 Acid reflux 909867339 Active 2024 AGNES Baker Attn: Accountin g,[address] [facility], [place], [address], [place] - [facility] 5 23:06:03 Problem Notes None recorded. Medical Equipment None Reported. Allergies Allergen ID Allergen Name Allergen Category Reaction Reaction Severity Criticality Documentation Date Start Date Code Code System Note Provider Name and Address Organization Details Recorded Time 567255 codeine medicatio n nausea Not available Not available 08/16/2023 2670 RxNorm YAMILET Jason, [place] - [place] 4 10:47:39 165914 morphine medicatio n headache Not available Not available 08/16/2023 7052 RxNorm Shakeel Davey MA null, [place] - [place] 4 10:47:58 Medications Name Sig Start Date Stop Date Status Note LastModified by Organization Details LastModified Time cyclobenz aprine 10 mg tablet Take 1 tablet every day by oral route for 20 days. active as needed Not Available Not Available Not Available nystatin 100,000 unit/mL oral suspensio n TAKE 5 ML 4 TIMES A DAY BY ORAL ROUTE DIRECTED , FOR THRUSH. active Not Available Not Available No t Available atorvasta tin 20 mg tablet Take 1 tablet every day by oral route for 90 days. 02/19 completed Not Available Not Available Not Available azithromy maria teresa 250 mg tablet TAKE 2 TABLETS BY MOUTH TODAY, THEN TAKE 1 TABLET DAILY FOR 4 DAYS DIRECTED 06/12 completed Not Available Not Available Not Available fluconazo le 150 mg tablet TAKE 1 TABLET BY MOUTH EVERY DAY FOR 5 DAYS active Not Available Not Available No t Available Synthroid 125 mcg tablet Take 1 tablet every day by oral route. active Not Available Not Available No t Available omeprazol e 40 mg capsule,d elayed release TAKE 1 CAPSULE BY MOUTH DAILY WITH A MEAL active Not Available Not Available No t [...] Not Available No t Available omeprazol e 05/21 completed otc Not Available Not Available Not Available [...] (2 mg/3 mL) subcutane ous pen injector 0.25 MG (0.368 ML) SUBCUTAN EOUSLY WEEKLY active Not Available Not Available No t Available Vitals Date Recorded Body height Body mass index (BMI) Body weight Respiratory rate Oxygen saturation Oxygen saturation in Arterial blood by Pulse oximetry Heart rate Systolic blood pressure Diastolic blood pressure Provider Name and Address Organization Details Last Updated DateTime 5 152.4 cm 57.4 kg/m2 961134. 16 g 20 /min 98 % 98 % 82 /min 138 mm[Hg] 88 mm[Hg] Shakeel Davey [place] - [facility] 5 12:32:08 Date Recorded Systolic blood pressure Diastolic blood pressure Provider Name and Address Organization Details Last Updated DateTime 08/16/2023 146 mm[Hg] 80 mm[Hg] AGNES Baker Attn: Accounting,[address] [place], [address], [facility] 08/16/2023 11:13:04 Date Recorded Respiratory rate Body weight Body mass index (BMI) Body height Oxygen saturation Oxygen saturation in Arterial blood by Pulse oximetry Heart rate Systolic blood pressure Diastolic blood pressure Provider Name and Address Organization Details Last Updated DateTime 4 20 /min 561073. 23 g 58.7 kg/m2 152.4 cm 98 % 98 % 77 /min 126 mm[Hg] 82 mm[Hg] Shakeel Davey MA [facility] 4 10:52:34 Date Recorded Systolic blood pressure Diastolic blood pressure Provider Name and Address Organization Details Last Updated DateTime 02/20/2024 110 mm[Hg] 80 mm[Hg] AGNES Baker Attn: Accounting,[address] [place], [address], [facility] 02/20/2024 09:46:47 Date Recorded Body height Body mass index (BMI) Body weight Respiratory rate Oxygen saturation Oxygen saturation in Arterial blood by Pulse oximetry Heart rate Systolic blood pressure Diastolic blood pressure Provider Name and Address Organization Details Last Updated DateTime 4 152.4 cm 52.1 kg/m2 917998. 16 g 20 /min 99 % 99 % 90 /min 140 mm[Hg] 82 mm[Hg] Shakeel Davey MA [facility] 4 09:27:41 Social History Question Answer Notes LastModified by Organizat ion Details LastModified Time Tobacco Smoking Status Never Smoker Shakeel Davey MA null, [facility] 08/16/2023 10:50:31 Do You Have An Advance Directive? No Information n ot available 08/16/2023 Are You Blind Or Do [...] No Information not available 08/15/2023 Are You Deaf Or Do You Have [...] Information not available 08/15/2023 Do You Use Sunscreen Routinely? Yes Information not available 08/16/2023 Has Tobacco Cessation Counseling Been Provided? Yes Information not available 08/15/2023 On What Date Was Tobacco Cessation Counseling Provided? 05/14/2024 Information not available 05/14/2024 Sex: Female Functional Status Question Answer Note LastModified by Organizat ion Details LastModified Time Do you use any illicit or recreational drugs? No Information not available 08/16/2023 Do you or have you ever used any other forms of tobacco or nicotine? No Information not available 08/16/2023 What is your level of alcohol consumption? None Information not available 08/16/2023 Are you currently employed? No Information not available 02/20/2024 Are you able to care for yourself? Yes Information not available 08/16/2023 What is your exercise level? [...] Reflux (GERD) N Cancer N Stroke N High Cholesterol N Liver Disease N Headaches N Kidney or Bladder Problems N Thyroid Problems Y GI Problems N Skin Problems N Anemia N Heart Attack (PR) N Diabetes Y Seizures/Epilepsy N Asthma Y Allergies N Hepatitis N Heart Failure N Osteoporosis N Gynecological History Statement/Question Response Menses Monthly N Current Control Method Menopause Obstetrics History GPAL:G 5 P 5 0 0 5 Type Value Full Term 5 Induced 0 Spontaneous 0 Premature 0 Living 5 Total 5 Past Encounters Encounter ID Performer Location Encounter Start Date Encounter Closed Date Diagnosis/Indication Diagnosis SNOMED-CT Code Diagnosis ICD10 Code Diagnosis Note [id number] Octavio Cowan MD COUNTS INCLUDE [address] BEDS AT [facility] [employer] [address] [place] [address] 08/16/2023 10:07:27 08/16/2023 11:35:19 Neck pain 29151455 M54.2 check xray cspine and refill cyclobenza eugenia 10mg tid Prn. Thoracic back pain 54719 8004 M54.6 check xray of tspine. Low back pain 674276341 M54.50 check xray of lumbosacra l spine. Contusion of left foot 4443342033 4716987 S90.32XA stubbed foot on the door and wall. left lateral foot pain. send for xray left foot. r/o fx. Uncontroll ed type 2 diabetes mellitus 278868180 E11.65 seeing endo at [facility] now. f/u in 3 months again. meds have been sent out by them Hypothyroidism 36584458 E03.9 Meds sent out by [facility] in [place] . Long-term drug therapy 978550440 Z79.728 [id number] Octavio Cowan MD COUNTS INCLUDE 234 BEDS AT [facility] [employer] [address] [place] [address] 02/20/2024 09:06:39 02/20/2024 13:43:28 Body mass index 40+ - severely obese 414409769 Z68.43 bmi 52.1 Obesity 332162332 E66.9 discussed healthy diet, exercise, controllin g carbohydra avila and added sugars in the diet Acute sinusitis 59637538 J01.90 Start Omnicef 300 mg twice daily for 7 days Disturbance in speech 29 587462 R47.9 3 days ago an episode of transient speech disturbanc e where words were not coming out right. she does have some dizziness and left sided headache present. the episode lasted a few minutes. Refer for MRI of the brain with and without contrast Mixed hyperlipidemia 267 526929 E78.2 Patient is on rosuvastat in 40 mg daily and is up-to-date on labs. She is following Microalbum inuric diabetic nephropathy 190163683 E11.21 Noted on labs at this time. We have discussed institutin g Dada or Arb therapy in the future Uncontroll ed type 2 diabetes mellitus 054383391 E11.65 seeing endo at [facility] now. last a1c is 7.2%. labs are ordered via their office. Patient is taking metformin therapy as well as glimepirid e and Ozempic and Farxiga. Screening mammography 24 382025 Z12.31 Annual mammogram is due Dizziness 797406777 R42 MRI brain w/wo as ordered above. [id number] Octavio Cowan MD COUNTS INCLUDE 234 BEDS AT [facility] [place] [address] [place] [address] 05/14/2024 11:47:34 05/14/2024 15:35:14 Body mass index 40+ - severely obese 075317669 Z68.43 BMI is 57.4 Morbid obesity 553649760 E66.01 discussed healthy diet, exercise, controllin g carbohydra avila and added sugars in the diet Cough 04012775 R05.9 send for CXR and start empiric zpack therapy. Left sided abdominal pain 890532982 R10.9 r/o diverticul ar disease, send for CT scan A/P w/c. Long-term drug therapy 597469028 Z79.899 Labs are up-to-date Uncontroll ed type 2 diabetes mellitus 376177983 E11.65 Patient will continue management with the endocrinol ogist. She did have to stop Ozempic therapy due to the severe side effects of constipati on. She continues metformin 500 mg daily, Farxiga 10 mg daily Acid reflux 799521178 K2 1.9 Send for upper GI series to evaluate for any hiatal hernia or reflux joanne cordero that her symptoms are indicative of acid indigestio n Health Concerns Section Related Observation LastModified by Organization Detai ls LastModified Time None Recorded Concern Status LastModified by Organization Details LastModified Time None Recorded Advance Directives Directive N: Payers Encounter Date Sequence Insurance Name Policy Number Policy Grimaldo Covered Member ID Grimaldo Member ID Guarantor Name 08/16/2023 1 [employer] HE[employer] - [employer]ET[employer] ([place]) [id number] Treva Bain [id number] 1 Treva Bain 02/20/2024 1 [employer] HE[employer] - [employer] ([place]) [id number] Treva Bain [id number] 1 Treva Bain 05/14/2024 1 [employer] [facility] [facility] [employer] [employer] [employer] - [employer] (POS II) [id number] Treva Bain [id number] 1 Treva Bain Notes Date Note Type Note Provider Name and Address Organization Details Recorded Time 024 text/ht ml Back PainReported bypatient.Notes:low back, mid back and neck pain. biggest complaint today is her pain. no injury , just pain.DiabetesReported bypatient.Notes:seeing endocrine in [place]. on ozempic and metformin.HyperlipidemiaReported bypatient.Notes:pt is taking atorvastatin 20mg daily.ThyroidReported bypatient.Notes:seeing endocrine now in [place]. on unithroid 125mcg daily. AGNES Baker Attn: Accounting, [address] [place], [address], [facility] - [facility] 09/03/2023 15:35:09 024 text/ht ml DiabetesReported bypatient.Notes:seeing endocrine in [place]. on ozempic and metformin.DizzinessReported bypatient.Quality:lightheadedness Severity:some effect [...] use Prior opinionPCPThyroidReported bypatient.Notes:seeing endocrine now in [place]. on unithroid 125mcg daily. AGNES Baker Attn: Accounting, [address] [place], [address], [facility] 03/02/2024 17:33:50 025 text/ht ml Abdominal PainReported bypatient.Location:LLQ; LUQ; periumbilical Quality:pain;aching Severity:moderate Duration:intermittent Onset/Timing:wax/wane Modifying Factors:nothing gives relief Associated Symptoms:no fever; no chills; no blood in the urine; no heartburn; no shortness of breath Other:denies possible pregnancyConstipationReported bypatient.Quality:decreased frequency;decreased amount Severity:moderate Duration:present for 1-6 months ContextOzempic.Notes:off ozempic due to constipation, it was just too severe.CoughReported bypatient.Severity:mild Duration:intermittent Context:non-smoker Associated Symptoms:no fever; no chills; no chest pain; no heartburn; no nausea; no vomiting; no edema; no agitation; no wheezing; no post nasal drip AGNES Baker Attn: Accounting, [address] [place], [address], [facility] 06/01/2024 23:07:58 OBGyn Episode No OBEpisode recorded.
--- OUTSIDE RECORDS SUMMARY | 2024-09-09 00:40 | XMS_ITS | Data Portability ---
Author Organization [facility] [place] Address [address] [place] [address] Assessment Encounter Date Assessment Date Assessment LastModified [...] By Organization Details Last Modified Time 03/24/2020 [id number] [email or web address] Not available 09:51:04 Reason for Referral [...] Updated DateTime 03/24/2020 154.94 cm 54 kg/m2 530082.4 2 g 137 mm[Hg] 81 mm[Hg] Franchesca Powell [facility] 0 14:58:27 Social History None recorded. Functional Status None recorded. Mental Status None recorded. Family History Relationship Description Onset Age of this Age Resolved Age Notes LastModified by Organization Details LastModified Time Maternal Aunt Diabetes mellitus [email or web address] Not available 2019 14:52:28 Medical History Condition Response Asthma Y High Cholesterol Y Thyroid Problems Y Diabetes Y Gynecological HistoryNo gynecological history recorded. Obstetrics History GPAL:G 0 P 0 0 0 0 Past Encounters Encounter ID Performer Location Encounter Start Date Encounter Closed Date Diagnosis/Indication Diagnosis SNOMED-CT Code Diagnosis ICD10 Code Diagnosis Note [id number] Daniela Webber [facility] [address] [address] 03/24/2020 14:49:38 03/29/2020 14:19:02 Gynecologic examination 75198969 Z01.419 Take Calcium with Vitamin D 12-1500mg daily. Do monthly self breast exams. It is advised to get annual flu shot in the fall and she could obtain at [facility] or [facility] care clinic. If you haven't received the [...] Grimaldo Member ID Guarantor Name 03/24/2020 1 [facility] Elia Bain [id number] Treva Odell Notes Date Note Type Note Provider Name [...] schedule mammogram; Needs to schedule colonoscopy Daniela Webber, [facility]- [address], [place], [address], [facility] 03/25/2020 09:55:00 OBGyn Episode Ob Episode Information Episode Created Date Number of Fetuses Patient Bloodtype Patient rh Status Prepregnancy Weight lbs Domestic Partner Domestic Partner Phone Father Name Fitness Floor Attendant Status 03/24/20 1 CLOSED Fetus Data First Name Last [...] Domestic Partner Domestic Partner Phone Father Name Fitness Floor Attendant Status 03/24/20 20 1 CLOSED Fetus Data [...] Domestic Partner Domestic Partner Phone Father Name Fitness Floor Attendant Status 03/24/20 20 1 CLOSED Fetus Data [...] Domestic Partner Domestic Partner Phone Father Name Fitness Floor Attendant Status 03/24/20 20 1 CLOSED Fetus Data [...] Domestic Partner Domestic Partner Phone Father Name Fitness Floor Attendant Status 03/24/20 20 1 CLOSED Fetus Data [...]
--- OUTSIDE RECORDS SUMMARY | 2024-09-09 00:40 | XMS_ITS | Data Portability ---
Author Organization [facility] [employer], Main Office Address [address] [place] [address] Assessment No assessment recorded. Plan of Treatment Reminders Order Date Submit Date Provider Last Modified By Organization Details Last Modified Time Details Appointments None recorded. Lab cortisol, am, serum [address] (Lab), [address] [place] [address], [id number], 3 12:34:29 dexamethas one, serum [address] [place] [address] (Lab), [address] [place] [address], [id number], 3 12:34:29 lipid panel, serum [address] (Lab), [address] [place] [address], [phone], 3 12:34:12 HbA1c (hemoglobi n A1c), blood [address] [place] [address] (Lab), [address] [place] [address], [id number], 3 12:34:12 CMP, serum or plasma [address] (Lab), [address] [place] [address], [id number], 3 12:34:12 microalbum in/creatin ine, mass ratio, urine [address] (Lab), [address] [place] [address], [address], 3 12:34:12 TSH + free T4, serum [address] (Lab), [address] [place] [address], [id number], 3 12:34:12 T3, free, serum or plasma [address] (Lab), [address] [place] [address], [id number], 3 12:34:13 T3, free, serum or plasma [address] (Lab), [address] [place] [address], [id number], 3 12:34:29 Referral endocrinol ogy referral 2022 023 [email or web address] Tahira Hdz MD, [address],, [address], [address], 3 11:09:55 Procedures None recorded. Surgeries None recorded. Imaging None recorded. Medication Orders cyanocobal wade (vit B-12) 1,000 mcg/mL injection solution 2022 023 [facility] #[id number], [address] [place], [address], 3 13:25:57 atorvastat in 20 mg tablet 2022 023 [facility] #[id number], [address] [place], [address], 3 10:58:12 Farxiga [address] [id number] [address] [place], [address], 3 10:50:00 glimepirid e 1 mg tablet [address] [id number], [address] [place], [address], 3 10:51:21 metformin ER 500 mg tablet,ext ended release [address] [id number] [address] [place], [address], 3 10:57:21 Ozempic 1 mg/dose (4 mg/3 mL) subcutaneo us pen injector [address] [id number] [address] [place], [address], 3 10:57:20 Unithroid 125 mcg tablet 2022 023 [id number], [address] [place], [address], 3 16:20:45 dexamethas one 1 mg tablet 2022 023 [facility], [address] [place] [address], [address], 3 12:34:26 metformin ER 500 mg tablet,ext ended release 24 hr 2022 023 [facility], [address] [place] [address], [address], 3 12:36:35 Unithroid 125 mcg tablet 2022 023 [facility], [address] [place] [address], [address], 3 12:34:27 Patient TargetsNo targets recorded. Patient [...] Organization Details Recorded Time Lumbago with sciatica 192644659 Active 2021 Not Available [facility] 3 20:04:52 Muscle tension 926191927 Active 2021 Not Available [facility] 3 20:04:52 Mixed hyperlipidemi a 148279471 Active 2018 Not Available [facility] 3 20:04:52 Hypothyroidis m 48527279 Active 2022 Not Available [facility] 3 20:04:52 Acute urinary tract infection 844283935 Active 2021 Not Available [facility] 3 20:04:52 Diarrhea of presumed infectious origin 35110689 Active 2021 Not Available [facility] 3 20:04:53 Type 2 diabetes mellitus 69681530 Active 2017 Not Available [facility] 3 20:04:53 Uncontrolled type 2 diabetes mellitus 052363739 Active 2022 Not Available [facility] 3 20:04:53 Lower abdominal pain 31101578 Active 2020 Not Available [facility] 3 20:04:53 Congestion of nasal sinus 62312675 Active 2021 Not Available [facility] 3 20:04:53 Weight gain 6864814 Active 2022 MD [address] [facility], [place], [address] , [facility] [employer] [facility] 3 12:31:26 Dyslipidemia 050670883 Active 2022 Reyna Faye MD [address], [place], [address] , [employer] 3 12:33:42 Essential hypertension 80468297 Active 2022 Reyna Faye MD [address], [place], [address] , [facility] [employer] [facility] 3 14:16:29 Vitamin B12 deficiency (non anemic) 28624941 Active 2022 Reyna Faye MD [address], [place], [address] , [employer] [facility] 3 13:25:05 Problem Notes None recorded. Procedures Surgical History Date Name Laterality Status Provider Name and Address Organization Details Recorded Time 1 delivery completed Not Available [facility] 06/01/2022 20:03:14 9 delivery completed Not Available [facility] 06/01/2022 20:03:14 7 delivery completed Not Available [facility] 06/01/2022 20:03:14 6 delivery completed Not Available [facility] 06/01/2022 20:03:14 4 delivery completed Not Available [facility] 06/01/2022 20:03:14 Sinus Surgery completed Not Available [facility] 06/01/2022 20:03:14 Imaging Results None recorded. Procedure Notes None recorded. Medical Equipment None Reported. Allergies Allergen ID Allergen Name Allergen Category Reaction Reaction Severity Criticality Documentation Date Start Date Code Code System Note Provider Name and Address Organization Details Recorded Time 14076 morphine medicatio n vomiting Not available Not available 06/01/2022 7052 RxNorm Not Available [facility] 20:07:42 16019 codeine medicatio n nausea Not available Not available 06/01/2022 2670 RxNorm Not Available [facility] 3 20:07:42 Medications Name Sig Start Date Stop [...] Ultra-Fin e 1 mL 31 gauge x 08/16 INJECT B12 ONCE WEEKLY X 90 DAYS [...] Available Not Available [employer] 14 Day [place] active Not Available Not Available Not Available [employer] 2 Sensor kit CHANGE EVERY 14 DAYS active Not Available Not Available No t Available Ozempic 1 mg/dose (4 mg/3 mL) subcutane ous pen injector INJECT 1 MG SUBCUTAN EOUSLY ONCE WEEKLY active Not Available Not Available No t Available Ozempic 0.25 mg or 0.5 mg (2 mg/3 mL) subcutane ous pen injector Inject 0.5 mg every week by subcutan eous route at dinner for 90 days. 11/24 completed Not Available Not Available Not Available Vitals Date Recorded Body height Body mass index (BMI) Body weight Heart rate Body temperature Systolic blood pressure Diastolic blood pressure Provider Name and Address Organization Details Last Updated DateTime 3 162.56 cm 50.1 kg/m2 607867. 97 g 79 /min 97.7 [degF] 190 mm[Hg] 88 mm[Hg] CHILO Coleman [place] [facility] 3 12:14:24 Date Recorded Body mass index (BMI) Body height Oxygen saturation Oxygen saturation in Arterial blood by Pulse oximetry Heart rate Respiratory rate Body temperature Body weight Systolic blood pressure Diastolic blood pressure Provider Name and Address Organization Details Last Updated DateTime 2 47.9 kg/m2 162.56 cm 97 % 97 % 100 /min 18 /min 98.7 [degF] 068603. 27 g 120 mm[Hg] 68 mm[Hg] Not Available [facility] 3 20:03:22 Date Recorded Body mass index (BMI) Body height Oxygen saturation Oxygen saturation in Arterial blood by Pulse oximetry Heart rate Body temperature Body weight Systolic blood pressure Diastolic blood pressure Provider Name and Address Organization Details Last Updated DateTime 1 48.4 kg/m2 162.56 cm 96 % 96 % 103 /min 98.9 [degF] 289732. 05 g 120 mm[Hg] 88 mm[Hg] Not Available [facility] 3 20:03:22 Date Recorded Body height Body mass index (BMI) Body weight Body temperature Heart rate Systolic blood pressure Diastolic blood pressure Provider Name and Address Organization Details Last Updated DateTime 3 162.56 cm 51 kg/m2 713575. 93 g 98 [degF] 89 /min 132 mm[Hg] 76 mm[Hg] Jaci Genao CMA [place] [facility] [employer] [facility] 3 10:36:57 Social History Question Answer Notes LastModified by [employer] Details LastModified Time Tobacco Smoking Status Never Smoker Not Available [facility] 06/01/2022 20:03:01 What Is Your Level Of Caffeine Consumption? Occasional [id number] Information not available 06/01/2022 How Much Tobacco Do You Chew? None [id number] Information not available 06/01/2022 In The 14 Days Before Symptom Onset, Have You Had Close Contact With A Laboratory-confirm ed COVID-19 While That Case Was Ill? No [id number] Information not available 06/01/2022 In The 14 Days Before Symptom Onset, Have You Had Close Contact With A Person Who Is Under Investigation For COVID-19 While That Person Was Ill? No [id number] Information not available 06/01/2022 What Type Of Diet Are You Following? REGULAR [id number].[id number] Information not available 06/01/2022 Which Illicit Or Recreational Drugs Have You Used? None [id number] Information not available 06/01/2022 How Much Tobacco Do You Smoke? No MIGRATION.[id number] 6458 Information not available 06/01/2022 Sex: Unknown Functional Status Question Answer Note LastModified by [employer] Details LastModified Time What is your level of alcohol consumption? None [id number].[id number] 026 Information not available 06/01/2022 Do you or have you ever used smokeless tobacco? Never used smokeless tobacco MIGRATION.[id number] 026 Information not available 06/01/2022 Do you or have you ever used e-cigarettes or vape? Never used electronic cigarettes MIGRATION.[id number] 026 Information not available 06/01/2022 What is your exercise level? Occasional [id number].[id number] 026 Information not available 06/01/2022 Mental Status None recorded. Family History Relationship Description Onset Age of this Age Resolved Age Notes LastModified by Organization Details LastModified Time Maternal Aunt Diabetes mellitus [id number] Not available 06/01/2022 20:03:15 Maternal Grandmother Prediabetes [id number].03 [id number] Not available 06/01/2022 20:03:15 Medical History Condition Response OBESITY Y ASTHMA Y HYPOTHYROIDISM Y DIABETES, TYPE Y KIDNEY DISEASE HIGH CHOLESTEROL / HYPERLIPIDEMIA Y Gynecological History Statement/Question Response Abnormal Pap N Sexually Active? Y Obstetrics History GPAL:G 6 P 0 0 0 5 Type Value Living 5 Total 6 Past Encounters Encounter ID Performer Location Encounter Start Date Encounter Closed Date Diagnosis/Indication Diagnosis SNOMED-CT Code Diagnosis ICD10 Code Diagnosis Note [id number] AGNES Baker [place] [place] [address] [place] [address] 08/13/2020 00:00:00 08/13/2020 18:26:35 [id number] AGNES Baker S_[facility] [place] [address] [place] [address] 09/16/2020 00:00:00 09/30/2020 17:25:08 [id number] AGNES Baker S[facility] [place] [address] [place] [address] 10/01/2020 00:00:00 10/17/2020 21:03:02 [id number] Reyna Faye MD [facility] [place] [address] [place] [address] 10/09/2020 00:00:00 10/09/2020 14:05:57 [id number] Octavio Cowan MD [facility] [place] [address] [place] [address] 09/06/2021 00:00:00 09/30/2021 20:04:31 [id number] Reyna Faye MD [facility] [place] [address] [place] [address] 03/19/2021 00:00:00 03/19/2021 12:16:35 [id number] Reyna Faye MD [facility] [place] [address] [place] [address] 07/01/2022 12:03:13 07/01/2022 13:44:17 Uncontrolled type 2 diabetes mellitus 837835085 E11.65 a1c 7.8%- restart metformin. Will uptitrate ozempic to 2 mg once weekly- sample provided and continue farxiga 10 mg daily. Discussed carb counting and how to read food labels. Recommende d patient to utilize the diabetesfo [employer].Spokeable from the ADA website to help with food preparatio n as this presents ideal carb content per meal so this will make carb counting much easier for patient. Recommende d she incorporat e natural insulin window maker s such as pears, apples, cinnamon, charla and sweet potatoes to help mobilize her endogenous insulin. Recommende d up to 150 minutes of moderate level activity/e xercise weekly. Hypothyroidism 93749566 E03.9 WIll uptitrate and transition to unithroid [...] minerals and reduce inflammati on. Weight gain 9036756 R63. 5 Will send for low dose dexa suppressio n testing to screen for hypercorti solic state. Dyslipidemia 586910102 E 78.5 Continue statin therapy. Spent up to 28 minutes preparing to see the patient (eg, review of tests), obtaining and/or reviewing separately obtained history, performing a medically appropriat e examinatio n and evaluation , counseling and educating the patient, ordering medication s, tests, along with documentin g clinical informatio n in the electronic health record, jeni bradley interpreti ng results and communicat ing results to the patient. RTC in 3-4 months. Patient was provided a handwritte n lab order which contains our fax number. If she chooses to go outside of the [facility] to obtain labwork she was [...] in her case. She voiced understand ing. [id number] Reyna Faye MD [facility] [place] [address] [place] [address] 11/24/2022 10:27:01 11/24/2022 11:09:54 Uncontrolled type 2 diabetes mellitus 793204747 E11.65 Continue on current regimen- farxiga 10 mg daily, metformin for insulin sensitizat ion, glimepirid e scale along with ozempic 1 mg once weekly. Discussed carb counting and how to read food labels. Recommende d patient to utilize the diabetesfo [employer].Spokeable from the ADA website to help with food preparatio n as this presents ideal carb content per meal so this will make carb counting much easier for patient. Recommende d she incorporat e natural insulin window maker s such as pears, apples, cinnamon, charla and sweet potatoes to help mobilize her endogenous insulin. Recommende d up to 150 minutes of moderate level activity/e xercise weekly. Hypothyroidism 52052288 E03.9 Continue on unithroid 125 mcg daily. [...] and minerals and reduce inflammati on. Dyslipidemia 705199869 E 78.5 Continue statin therapy. Vitamin B1 2 deficiency (non anemic) 10043620 E53.8 Trial on B12 injections as she [...] Grimaldo Member ID Guarantor Name 07/01/2022 1 [employer] [id number] Elia Bain [id number] Treva Bain 11/24/2022 1 [employer] [id number] Elia Bain [id number] 19 Treva Bain Notes Date Note Type Note [...] DM; no HIV; no immunodeficiency Not Available [facility] [employer] 09/30/2021 20:04:31 07/01/2022 text/html 57 yo female [...] 34.2 ug/mgglucose 130 mg/dLB12 321 pg/mlLFT normalCr ddgxydy7c 7.8%180/258/35/92 Complications:No CAD or strokelast eye exam: has small areas of retinopathylast foot exam: no neuropathy , no sores, ulcers or amputations. Reyna Faye MD [address] [employer], [place], [address], [employer] 07/01/2022 13:48:01 11/24/2022 text/html 57 yo female [...] of 7.9%glucose 183 mg/dlmicroalbumin 58.5 ug/mgLFT normalCr myxuwi291/435/38/94 Reyna Faye MD [address], [place], [address], [employer] 11/24/2022 13:27:55 OBGyn Episode No OBEpisode recorded.
--- OUTSIDE RECORDS SUMMARY | 2024-09-09 00:41 | XMS_ITS | Patient Health Record ---
Author Organization [facility] Address [address] [facility] [address] [place], [place] [id number] Care Team Providers Care Corporate Concierge Name Role Phone BRII KIM Unavailable [phone] Reason For Referral No Information Plan Of Treatment No Information
--- OUTSIDE RECORDS SUMMARY | 2024-09-09 00:41 | XMS_ITS | Referral Summary ---
Author Organization [facility] Address [address] [place] [address] Care Team Providers Care Bleaching Supervisor Name Role Phone Warrenjaiden Ching ALARCON Primary [...] on file Legal Sex Female 9:27 AM COLD MILL SUPERVISOR Gender Identity Not on file Sexual Orientation Not on file Last Filed Vital Signs Vital Sign Reading Time Taken Comments Blood Pressure 130/86 02/17/2016 1:41 PM COLD MILL SUPERVISOR Pulse 96 02/17/2016 1:41 PM COLD MILL SUPERVISOR Temperature - - Respiratory Rate - - Oxygen Saturation 96% 02/17/2016 1:41 PM COLD MILL SUPERVISOR Inhaled Oxygen Concentration - - Weight 124.3 kg (274 lb) 02/17/2016 1:41 PM COLD MILL SUPERVISOR Height 162.6 cm (5' 4) 02/17/2016 1:41 PM COLD MILL SUPERVISOR Body Mass Index 47.03 02/17/2016 1:41 PM COLD MILL SUPERVISOR Plan of Treatment Not on file Insurance [facility] SIG [id number] Care Teams Bleaching Supervisor Relationship Specialty Start Date End Date Ching Nice PA PCP - General Physician Commercial Credit Portfolio Manager 09/18/18
--- OUTSIDE RECORDS SUMMARY | 2024-09-09 00:41 | XMS_ITS ---
Author Organization [facility] Address [address] [place], [place] [id number] Care Team Providers Care Regional Liaison Name Role Phone BRII KIM Unavailable [phone] REASON FOR VISIT cans fell on toe, now bone exposed Encounters Encounter Location Date Provider Diagnosis [facility] [address] [place], [place] [id number] 12/18/2023 BRII KIM Plan Of Treatment No Information Progress Notes * Treva BAINDOB: 8 (59 yo F)Acc No.[id number]:12/18/2023 Progress Notes Patient: Treva BEAULIEU Provider: Len Kim DPM :1965 A ge:58 Y S ex:Female Date:12/18/2023 Address:[address] [place], [place] [address] Subjective: * Chief Complaints: * 1 . Cans fell on toe, now bone exposed. * Medical History: Objective: * Vitals: Assessment: Plan: * Treatment: * Billing Information: * Visit Code: * Procedure Codes: * Electronic signature of BRII KIM DPM on 09/09/2024 at 12:40 AM CDT Sign off status: Pending * Provider: Len Kim DPM Date: 12/18/2023 Generated for Demetrius buchanan/Everardo/eTmaxsmitting on: 09/09/2024 12:40 AM CDT
--- OUTSIDE RECORDS SUMMARY | 2024-09-09 00:41 | XMS_ITS | Clinical Summary ---
Author Organization [facility] Address [address] [place] [address] Care Team Providers Care Blood Donor Unit Assistant Name Role Phone Marilyn Ro MD Primary Care Provider [phone] [facility],non-owned Affiliates and Associated Physician Practices is amultiple site organization consisting of ambulatory clinics and hospital sitesin [place], [place], [place] and [place]. This disclosure is being madepursuant to the Care Everywhere program and may not contain all information available regarding this patient. Last updated 17.[facility] Allergies Active Allergy Reactions Criticality Noted Date [...] drink = 0.6 oz pur e alcohol) Comments Unknown Sex and Gender Information Value Date Recorded Sex Assigned at Not on file Legal Sex Female 6:28 PM TEXTILE COLORIST DYER Gender Identity Not on file Sexual Orientation Not on file Last Filed Vital Signs Vital Sign Reading Time Taken Comments Blood Pressure 124/78 09/03/2013 9:33 AM CDT Pulse 100 09/03/2013 9:33 AM CDT Temperature 36.6 C (97.8 F) 05/06/2013 12:45 PM TEXTILE COLORIST DYER Respiratory Rate 18 05/06/2013 1:15 PM TEXTILE COLORIST DYER Oxygen Saturation 92% 05/06/2013 1:15 PM TEXTILE COLORIST DYER Inhaled Oxygen Concentration - - Weight 127 kg (280 lb) 09/03/2013 9:33 AM CDT Height 162.6 cm (5' 4) 09/03/2013 9:33 AM CDT Body Mass Index [...] SCREENING 1965 LIPID TESTING 1965 MAMMOGRAM 1965 HIV SCREENING 06/11/1982 HEPATITIS C SCREENING 06/07/1985 DTAP/TDAP/TD VACCINES (1 - Tdap) 06/11/1986 HEPATITIS B VACCINE (1 of 3 - 19+ 3-dose series) 06/11/1986 PNEUMOCOCCAL VACCINE 50+ (1 of 1 - PCV) 06/11/2017 ZOSTER VACCINE (1 of 2) 06/11/2017 COVID-19 VACCINE (1 - 2023-2 5 season) 2023 DEPRESSION SCREENING 04/03/2024 INFLUENZA VACCINE (Season Ended) 2024 HIB VACCINE Aged Out No longer eligi ble based on patient's age to complete this topic HPV VACCINE Aged Out No longer eligi ble based on patient's age to complete this topic MENINGOCOCCAL (Group B) VACC INE SHARED DECISION-MAKING Aged Out No longer eligibl e based on patient's age to complete this topic MENINGOCOCCAL GROUPS A/C/Y/W VACCINE Aged Out No longer eligible b ased on patient's age to complete this topic Care Teams Blood Donor Unit Assistant Relationship Specialty Start Date End Date Marilyn Ro MD [address] [place] [address] PCP - General 03/19/13
--- OUTSIDE RECORDS SUMMARY | 2024-09-09 00:41 | XMS_ITS | Clinical Summary ---
Author Organization [facility] Address [address] [place] [address] Care Team Providers Care Clinician Oncology Name Role Phone WarrenJason hwangaaron ALARCON Primary [...] SURGICAL HISTORY Chronic sinusitis: Functional sinus surgery, [facility] Medical History Medical History Date Comments Hx Other Medical Chronic sinusit is; Comments: ECS 02/23/2016 - Social History Tobacco Use Types Packs/Day Years Used Date Smoking Tobacco: Never Assessed Comments Unknown Sex and Gender Information Value Date Recorded Sex Assigned at Not on file Legal Sex Female 9:27 AM TRAIN PLANNER Gender Identity Not on file Sexual Orientation Not on file Obstetrics History Last Filed Vital Signs Vital Sign Reading Time Taken Comments Blood Pressure 130/86 02/17/2016 1:41 PM TRAIN PLANNER Pulse 96 02/17/2016 1:41 PM TRAIN PLANNER Temperature - - Respiratory Rate - - Oxygen Saturation 96% 02/17/2016 1:41 PM TRAIN PLANNER Inhaled Oxygen Concentration - - Weight 124.3 kg (274 lb) 02/17/2016 1:41 PM TRAIN PLANNER Height 162.6 cm (5' 4) 02/17/2016 1:41 PM TRAIN PLANNER Body Mass Index 47.03 02/17/2016 1:41 PM TRAIN PLANNER Plan of Treatment Not on file Insurance [employer] SIG [id number] [facility] [address] [place] [id number] Care Teams Clinician Oncology Relationship Specialty Start Date End Date Ching Nice PA PCP - General Physician Other Sports Official 09/18/18
[2024-09-09 08:53] VITALS: BP 172/86; PULSE 82; RESP 18; TEMP 36.1; O2SAT 99; BMI 51.3
[2024-09-09] MEDS: LACTATED RINGERS 1,000 ML 150 ML IV CONT (09:04)
[2024-09-09 09:09] LABS: Glucose Point of Care 279 mg/dl (65-105)
--- NOTE | 2024-09-09 09:12 | PM.HPGS ---
History of Present Illness History of Present Illness Consent: Risks, benefits, and alternatives have been discussed and questions answered. Patient agrees to proceed with procedure. Chief complaint: Gastro-esophageal reflux disease without esophagit Narrative: Treva Bain is a 59 year old female with gerd despite omeprazole and abdominal discomfort Review of Systems Review of Systems: All systems reviewed & are unremarkable except as noted in HPI and below PMFSH Past Medical History Medical History (Updated 09/09/24 @ 09:13 by Kalpesh Stubbs MD) GERD (gastroesophageal reflux disease) Thyroid disorder Surgical History Surgical History H/O sinus surgery H/O section 5 total Family History Family History Grandparent Diabetes mellitus Mother Family history of psoriasis Social History Social History Smoking status: Never smoker Alcohol intake: never Substance use: never Do You Feel Safe in your Home?: Yes Lack of Transportation: No Lack of Food: Never True Current Housing: I Have Housing Concerned About Future Housing: No Difficulty Paying Gas/Electric Bills: No Difficulty Paying for Meds: No Currently Unemployed: No Education: Trade/Vocational Certificate Meds Home Medications and Allergies Home Medications ?Medication ?Instructions ?Recorded ?Confirmed ?Type albuterol sulfate 90 mcg/actuation 2 puff inhalation Q4-6H PRN 04/25/23 08/27/24 Rx aerosol inhaler shortness of breath or wheezing #8.5 grams icosapent ethyl 1 gram capsule 2 g (2 x 1 gram) PO BID #360 caps 10/18/23 08/27/24 Rx (Vascepa) blood-glucose sensor (Dexcom G7 #9 ea 01/30/24 08/27/24 Rx Sensor device) blood-glucose,high speed warper tender,cont #1 ea 01/30/24 08/27/24 Rx (Dexcom G7 [employer]) docusate sodium 100 mg capsule 100 mg PO DAILY #90 caps 01/30/24 09/09/24 Rx (Colace) glucagon 3 mg/actuation nasal 3 mg intranasal ONCE PRN 01/30/24 08/27/24 Rx spray (Baqsimi) hypoglycemia #1 ea rosuvastatin 40 mg tablet 40 mg PO DAILY #90 tabs 01/30/24 09/09/24 Rx metformin 500 mg tablet,extended See Rx Instructions .Route 04/18/24 09/09/24 Rx release 24 hr .COMPLEX #90 tabs Synthroid 125 mcg tablet 125 mcg PO DAILY #90 tabs 05/20/24 09/09/24 Rx (levothyroxine) dapagliflozin propanediol 10 mg 10 mg PO QAM #90 tabs 08/02/24 09/09/24 Rx tablet (Farxiga) glimepiride 1 mg tablet 2 mg (2 x 1 mg) PO BID 90 days 08/02/24 09/09/24 Rx #360 tabs semaglutide 0.25 mg or 0.5 mg (2 0.25 mg (0.368 mL) subcut WEEKLY 3 08/02/24 09/09/24 Rx mg/3 mL) subcutaneous pen injector months #6 mL (Ozempic) Allergies Allergy/AdvReac Type Severity Reaction Status Date / Time tramadol Allergy Intermediate VIOLENT Verified 09/09/24 08:51 VOMITING codeine Allergy Unknown Abdominal Verified 09/09/24 08:51 discomfort hydrocodone AdvReac Intermediate NAUSEA Verified 09/09/24 08:51 Vital Signs Vital Signs - 24 hr 09/09/24 08:53 Temperature 97 F L Pulse Rate 82 Respiratory Rate 18 Blood Pressure 172/86 H Pulse Oximetry 99 Oxygen Delivery Room Air Exam Const: General: comfortable and no acute distress HENMT: Face/Nose/Sinus: Normal nares present Eyes: General: appearance normal, both eyes and all related structures Neck: Neck: no JVD Resp: Auscultation: clear to auscultation bilaterally Cardio: Rate: regular rate Rhythm: regular rhythm GI: Inspection: non-distended GI Palp: Yes Soft to palpation Skin: General skin exam: normal color Neuro: General: gait normal Speech: normal speech Extrem: General: normal to inspection Psych: Mental Status: mental status grossly normal Assessment and Plan Assessment and plan (1) GERD (gastroesophageal reflux disease): Code(s): K21.9 - Gastro-esophageal reflux disease without esophagitis Status: Acute Assessment and Plan: egd with bx
--- NOTE | 2024-09-09 09:18 | P.PNAN_ITS ---
Anes - Initial Pre Proc Eval Procedure: Operation Date: 09/09/24 10:15 Proposed Procedures p Esophagogastroduodenoscopy - Kalpesh Stubbs MD Date/Time: 09/09/24 09:18 Surgeon: Kalpesh Stubbs MD Pre Op Diagnosis: Gastro-esophageal reflux disease without esophagit Patient Data Age: 59 Gender: F Height: 1.63 m Weight: 135.8 kg Last Vital Signs Temp 36.1 C L 09/09/24 08:53 Pulse 82 09/09/24 08:53 Resp 18 09/09/24 08:53 BP 172/86 H 09/09/24 08:53 Pulse Ox 99 09/09/24 08:53 O2 Del Method Room Air 09/09/24 08:53 Allergies Allergy/AdvReac Type Severity Reaction Status Date / Time tramadol Allergy Intermediate VIOLENT Verified 09/09/24 08:51 VOMITING codeine Allergy Unknown Abdominal Verified 09/09/24 08:51 discomfort hydrocodone AdvReac Intermediate NAUSEA Verified 09/09/24 08:51 Home Medications ?Medication ?Instructions ?Recorded ?Confirmed ?Type albuterol sulfate 90 mcg/actuation 2 puff inhalation Q4-6H PRN 04/25/23 08/27/24 Rx aerosol inhaler shortness of breath or wheezing #8.5 grams icosapent ethyl 1 gram capsule 2 g (2 x 1 gram) PO BID #360 caps 10/18/23 08/27/24 Rx (Vascepa) blood-glucose sensor (Dexcom G7 #9 ea 01/30/24 08/27/24 Rx Sensor device) blood-glucose,records and information manager,cont #1 ea 01/30/24 08/27/24 Rx (Dexcom G7 Gl[employer] Carrier) docusate sodium 100 mg capsule 100 mg PO DAILY #90 caps 01/30/24 09/09/24 Rx (Colace) glucagon 3 mg/actuation nasal 3 mg intranasal ONCE PRN 01/30/24 08/27/24 Rx spray (Baqsimi) hypoglycemia #1 ea rosuvastatin 40 mg tablet 40 mg PO DAILY #90 tabs 01/30/24 09/09/24 Rx metformin 500 mg tablet,extended See Rx Instructions .Route 04/18/24 09/09/24 Rx release 24 hr .COMPLEX #90 tabs Synthroid 125 mcg tablet 125 mcg PO DAILY #90 tabs 05/20/24 09/09/24 Rx (levothyroxine) dapagliflozin propanediol 10 mg 10 mg PO QAM #90 tabs 08/02/24 09/09/24 Rx tablet (Farxiga) glimepiride 1 mg tablet 2 mg (2 x 1 mg) PO BID 90 days 08/02/24 09/09/24 Rx #360 tabs semaglutide 0.25 mg or 0.5 mg (2 0.25 mg (0.368 mL) subcut WEEKLY 3 08/02/24 09/09/24 Rx mg/3 mL) subcutaneous pen injector months #6 mL (Ozempic) Laboratory Tests 09/09/24 09:03 POC Capillary Glucose 279 H mg/dl (65-105) Patient hx anesthesia problems: none Family hx anesthesia problems: none Results Review: All pre-operative results and documents have been reviewed as part of the pre- operative evaluation. [facility] Past Medical History Medical History GERD (gastroesophageal reflux disease) Thyroid disorder Surgical History Surgical History H/O sinus surgery H/O section 5 total Family History Family History Grandparent Diabetes mellitus Mother Family history of psoriasis Social History Social History Smoking status: Never smoker Alcohol intake: never Substance use: never Do You Feel Safe in your Home?: Yes Lack of Transportation: No Lack of Food: Never True Current Housing: I Have Housing Concerned About Future Housing: No Difficulty Paying Gas/Electric Bills: No Difficulty Paying for Meds: No Currently Unemployed: No Education: Trade/Vocational Certificate Anes - Eval Final PreProcedure Day of Procedure 09/09/24 09:18 Patient weight: super morbidly obese Heart: regular rate and rhythm Lungs: decreased breath sounds Airway: Mallampati scale class III Neurological: alert and oriented Last oral intake: >/= 8 hours ASA classification: III Emergent: no Anesthetic plan: proceed Anesthesia type and monitoring: general GIVS and standard monitoring Results Review: All pre-operative results and documents have been reviewed as part of the pre- operative evaluation. Informed Consent: The patient's anesthetic plan and its attendant risks and benefits were discussed with the patient/family/POA. Questions were solicited and answers provided to the satisfaction of the patient/family/POA.
--- NOTE | 2024-09-09 09:23 | S_PTH ---
PATIENT: Treva Bain LOC: [facility] Odon[facility]#:[id number] AGE/SX: 59/F ROOM: RE09/09/[address]: Kalpesh Stubbs MD : [id number] BED: DIS: 09/09/2024 SPEC #: [id number] RECD: 09/09/24 10:18 STATUS: DENNIS REJason #: [id number] KANDICE: 09/09/24 09:[address]: Kalpesh Stubbs DEPT: [facility] Surgical RECD BY: Jessica Suero ENTERED: 09/09/24 10:19 SP TYPE: Surgical OTHR DR: Ching Nice, PA-C Tissues: A - Small Bowel Bx B - Gastric Biopsy C - Esophageal Biopsy Procedures: Hematoxylin and Eosin Stain Gross and Microscopic Level 4
[2024-09-09 09:29] VITALS: BP 146/81; PULSE 75; RESP 17; O2SAT 99
[2024-09-09 09:39] VITALS: BP 137/68; PULSE 79; RESP 20; O2SAT 99
[2024-09-09 09:49] VITALS: BP 137/85; PULSE 74; RESP 20; O2SAT 100
== END 2024-09-09 10:00 | disposition home or self-care (01) ==
PROVIDERS: PCP Physician Assistant; Referring Provider Internal Medicine Gastroenterology; Visit Provider Internal Medicine Gastroenterology
PROC: 0DJ08ZZ Inspection of Upper Intestinal Tract, Via Natural or Artificial Opening Endoscopic (ICD-10-PCS; CPT 43239; principal; 2024-09-09 10:15)
DX: K21.00 Gastro-esophageal reflux disease with esophagitis, without bleeding (principal); K22.2 Esophageal obstruction; R10.13 Epigastric pain; E66.01 Morbid (severe) obesity due to excess calories; Z68.43 Body mass index [BMI] 50.0-59.9, adult; Z79.84 Long term (current) use of oral hypoglycemic drugs; Z79.85 Long-term (current) use of injectable non-insulin antidiabetic drugs
CPT/HCPCS: 43239; 43450; 82948; 88305; J2704; J7120